=== PATIENT | male | born 1980 | race Caucasian/White ===

== ENCOUNTER → 2019-09-24 11:54 | Outpatient (BNVA) | payer SELFPAY | PROVIDERS: Referring Provider Family Medicine; Visit Provider Specialist | DX: G40.909 Epilepsy, unspecified, not intractable, without status epilepticus (principal); F17.210 Nicotine dependence, cigarettes, uncomplicated | CPT/HCPCS: 36415; 80156; 99204 ==

== ENCOUNTER → 2019-10-22 07:34 | Outpatient (BNVA) | payer SELFPAY | PROVIDERS: PCP Specialist; Visit Provider Specialist | DX: G40.309 Generalized idiopathic epilepsy and epileptic syndromes, not intractable, without status epilepticus (principal) | CPT/HCPCS: 95816 ==

== ENCOUNTER → 2022-08-06 10:22 | Outpatient (BNVA) | payer BC, SELFPAY | PROVIDERS: PCP Family Medicine; Visit Provider Emergency Medicine | DX: M79.601 Pain in right arm (principal); S59.911A Unspecified injury of right forearm, initial encounter; X58.XXXA Exposure to other specified factors, initial encounter | CPT/HCPCS: 73060; 73090 ==

== ENCOUNTER → 2022-10-19 12:06 | Outpatient (BNVA) | payer BC, SELFPAY | PROVIDERS: PCP Family Medicine; Visit Provider Psychiatry & Neurology Neurology | DX: F33.0 Major depressive disorder, recurrent, mild (principal) | CPT/HCPCS: 80061; 83036 ==

== ENCOUNTER → 2023-05-16 13:12 | Outpatient (BNVA) | payer BC, SELFPAY ==
[2022-12-19 07:08] VITALS: BP 117/76; BMI 28.2
== END ==
PROVIDERS: PCP Family Medicine; Visit Provider Emergency Medicine
DX: K92.1 Melena (principal); Z12.9 Encounter for screening for malignant neoplasm, site unspecified; Z80.0 Family history of malignant neoplasm of digestive organs
CPT/HCPCS: 82378; 85014; 85018; 86301; G0103

== ENCOUNTER → 2023-07-06 10:59 | Outpatient (BNVA) | payer BC, SELFPAY ==
[2022-12-19 07:08] VITALS: BP 117/76; BMI 28.2
== END ==
PROVIDERS: PCP Family Medicine; Visit Provider Family Medicine
DX: K21.9 Gastro-esophageal reflux disease without esophagitis (principal); L21.9 Seborrheic dermatitis, unspecified; G40.309 Generalized idiopathic epilepsy and epileptic syndromes, not intractable, without status epilepticus; G43.909 Migraine, unspecified, not intractable, without status migrainosus; Z51.81 Encounter for therapeutic drug level monitoring; Z13.1 Encounter for screening for diabetes mellitus; Z13.220 Encounter for screening for lipoid disorders; Z13.6 Encounter for screening for cardiovascular disorders; Z79.899 Other long term (current) drug therapy
CPT/HCPCS: 80053; 80061; 85025

== ENCOUNTER 2023-07-26 07:49 | Day surgery (SDC) | payer OTHER, BC, MEDICAID, SELFPAY ==
[2022-12-19 07:08] VITALS: BP 117/76; BMI 28.2
[2023-07-26 07:59] VITALS: BP 112/74; PULSE 73; RESP 18; TEMP 36.1; O2SAT 99
[2023-07-26] MEDS: sodium chloride 0.9% 1,000 ML 30 ML IV (08:07)
--- NOTE | 2023-07-26 08:22 | PM.HP ---
Providers/Chief Complaint Primary Care Provider: Lainey Gonzalez MD Chief Complaint: K21.9, K92.2, Z80.0 History of Present Illness Javi Bassett is a 43 year old male Review of Systems General: Reports: 10 or more systems reviewed and unremarkable except in HPI and below Medications/Allergies Home Medications Medication Instructions Recorded Confirmed Last Taken Type mupirocin 2 % topical ointment 1 applic topical BID W57.XXXA #15 01/09/23 07/24/23 07/25/23 Rx grams ibuprofen 600 mg tablet 600 mg PO Q8H PRN pain #60 tabs 02/07/23 07/24/23 07/25/23 Rx citalopram 40 mg tablet (Celexa) 40 mg PO DAILY 30 days #30 tabs 05/17/23 07/24/23 07/25/23 Rx carbamazepine 200 mg tablet 200 mg PO BID 30 days #45 tabs 06/06/23 07/24/23 07/25/23 Rx (Tegretol) aripiprazole 5 mg tablet (Abilify) 5 mg PO DAILY 06/28/23 07/24/23 07/25/23 History ketoconazole 2 % shampoo 1 applic topical .weekly #120 mL 07/06/23 07/24/23 07/25/23 Rx pantoprazole 40 mg tablet,delayed 40 mg PO BID 90 days #180 tabs 07/06/23 07/24/23 07/25/23 Rx release (Protonix) zonisamide 100 mg capsule 250 mg (2.5 x 100 mg) PO DAILY 90 07/25/23 07/26/23 07/25/23 Rx days #225 caps Allergies Allergy/AdvReac Type Severity Reaction Status Date / Time amoxicillin Allergy ALGY-Difficulty Verified 07/26/23 07:57 Breathing Penicillins Allergy swelling Verified 07/26/23 07:57 chantix AdvReac Severe ADR-Agitate Uncoded 06/28/23 09:09 d PFSH Acute PFSH: Medical History Family history of colorectal cancer Cancer screening Psychiatric care Migraine Surgical History History of knee surgery left knee Family History Sister Melanoma Other CAD (coronary artery disease) Cancer Hypertension Stroke Denies family history of Diabetes Social History Smoking and tobacco/nicotine status: current every day tobacco/nicotine user cigarettes Packs smoked per day: 0.5 Quit status (tobacco/nicotine): has tried quititng Number of times tried to quit tobacco: 4 Second hand smoke exposure: No Alcohol intake: former (Only drank once and that was on his birthday. ) Former alcohol use details: on his birthday Substance/Drug Use: never Adopted: No Caregiver/support person: No Lives independently: Yes Household members: spouse and children Housing: House Marital status: Marital status details: March of 2022, been together 4 years Number of children: 0 Number of grandchildren: 0 Highest education level completed: 11th Grade service: No Current occupational status: other Details: working on disability Pets and animals: Yes Pets & animals: cat(s), dog(s) and farm animals Farm Animals: pigs Pets & animal details: [place] pig, chickens Leisure activites: other Leisure activities details: woodworking Sexually active: Yes () Do you think of yourself as: Straight/Heterosexual Current gender identity: Male Isabell/Gnosticist: None Special isabell needs: No Agree to transfusion: Yes Vitals/I&O/Wt Last Vital Signs Temp 97.0 F L 07/26/23 07:59 Pulse 73 07/26/23 07:59 Resp 18 07/26/23 07:59 BP 112/74 07/26/23 07:59 Pulse Ox 99 07/26/23 07:59 O2 Del Method Room Air 07/26/23 07:59 Weight last 48 hrs Weight 170 lb A&P Assessment and plan (1) Family history of colorectal cancer: (2) GERD (gastroesophageal reflux disease): Qualifiers: Esophagitis presence: without esophagitis Qualified Code(s): K21.9 - Gastro-esophageal reflux disease without esophagitis (3) GI bleed: Attestations Medical Necessity Statement*: Home Coding Level of Care Code Acute Code for Chg Fwd Diagnoses Family history of colorectal cancer Z80.0 Gastroesophageal reflux disease without esophagitis K21.9 Esophagitis presence: without esophagitis GI bleed K92.2
--- NOTE | 2023-07-26 08:23 | P.ANESASSM_ITS ---
Pre-Anesthetic Assessment Height/Weight: Height 1.78 m Weight 77.111 kg Temp Pulse Resp BP Pulse Ox O2 Del Method 97.0 F L 73 18 112/74 99 Room Air 07/26/23 07:59 07/26/23 07:59 07/26/23 07:59 07/26/23 07:59 07/26/23 07:59 07/26/23 07:59 Preop Diagnosis: Gerd Operation Date: 07/26/23 08:45 Proposed Procedures p EGD(Not Applicable) - Rolando Lewis DO s Colonoscopy(Not Applicable) - Rolando Lewis DO Familial anesthetic complications: None Was Beta Melissa taken within 24 hours: N/A Was Clonidine taken within 24 hours: N/A Last intake: Intake Last Liquid Date 07/25/23 Last Liquid Time 20:00 Last Solid Date 07/24/23 Last Solid Time 18:00 Social Tobacco and No alcohol 1 pack(s) per day 30 pack years Exam alert, oriented x 3 and clear to auscultation bilaterally Airway Mallampati: Class II Dentition: false History/ROS No significant history except as noted Pulmonary Shortness of Breath CV/HEM None reported one kidney has decreased function Hepatic None reported GI Gastroesophageal Reflux Disease Metabolic None reported Musc/skel None reported Neuropsych Seizure (epilepsy; last seizure over 1 year ago) Anesthetic Plan ASA status: 3 Anesthesia: Anesthesia Evaluation and MAC Risk of > 500 ml blood loss (7ml/kg in children): No Medications/Allergies Home Medications Medication Instructions Recorded Confirmed Last Taken Type mupirocin 2 % topical ointment 1 applic topical BID W57.XXXA #15 01/09/23 07/24/23 07/25/23 Rx grams ibuprofen 600 mg tablet 600 mg PO Q8H PRN pain #60 tabs 02/07/23 07/24/23 07/25/23 Rx citalopram 40 mg tablet (Celexa) 40 mg PO DAILY 30 days #30 tabs 05/17/23 07/24/23 07/25/23 Rx carbamazepine 200 mg tablet 200 mg PO BID 30 days #45 tabs 06/06/23 07/24/23 07/25/23 Rx (Tegretol) aripiprazole 5 mg tablet (Abilify) 5 mg PO DAILY 06/28/23 07/24/23 07/25/23 History ketoconazole 2 % shampoo 1 applic topical .weekly #120 mL 07/06/23 07/24/23 07/25/23 Rx pantoprazole 40 mg tablet,delayed 40 mg PO BID 90 days #180 tabs 07/06/23 07/24/23 07/25/23 Rx release (Protonix) zonisamide 100 mg capsule 250 mg (2.5 x 100 mg) PO DAILY 90 07/25/23 07/26/23 07/25/23 Rx days #225 caps Allergies Allergy/AdvReac Type Severity Reaction Status Date / Time amoxicillin Allergy ALGY-Difficulty Verified 07/26/23 07:57 Breathing Penicillins Allergy swelling Verified 07/26/23 07:57 chantix AdvReac Severe ADR-Agitate Uncoded 06/28/23 09:09 d Current Medications Generic Name Dose Route Start Last Admin Trade Name Freq PRN Reason Stop Dose Admin Sodium Chloride 1,000 mls @ 30 mls/hr 07/26/23 08:00 07/26/23 08:07 Sodium Chloride 0.9% IV 07/27/23 07:59 30 mls/hr .Q24H MATILDA Administration PFSH Anesthesia Medical History Family history of colorectal cancer Cancer screening Psychiatric care Migraine Surgical History History of knee surgery left knee Family History Sister Melanoma Other CAD (coronary artery disease) Cancer Hypertension Stroke Denies family history of Diabetes Social History Smoking and tobacco/nicotine status: current every day tobacco/nicotine user cigarettes Packs smoked per day: 0.5 Quit status (tobacco/nicotine): has tried quititng Number of times tried to quit tobacco: 4 Second hand smoke exposure: No Alcohol intake: former (Only drank once and that was on his birthday. ) Former alcohol use details: on his birth Substance/Drug Use: never Adopted: No Caregiver/support person: No Lives independently: Yes Household members: spouse and children Housing: House Marital status: Marital status details: March of 2022, been together 4 years Number of children: 0 Number of grandchildren: 0 Highest education level completed: 11th Grade service: No Current occupational status: other Details: working on disability Pets and animals: Yes Pets & animals: cat(s), dog(s) and farm animals Farm Animals: pigs Pets & animal details: [place] pig, chickens Leisure activites: other Leisure activities details: woodworking Sexually active: Yes () Do you think of yourself as: Straight/Heterosexual Current gender identity: Male Isabell/Zoroastrian: None Special isabell needs: No Agree to transfusion: Yes Data Anesthesia Cardiac Studies: No Data to Display
[2023-07-26 09:14] VITALS: BP 100/68; PULSE 64; RESP 16; TEMP 36.1; O2SAT 97
[2023-07-26 09:19] VITALS: BP 94/66; PULSE 76; RESP 16; O2SAT 99
[2023-07-26 09:29] VITALS: BP 115/72; PULSE 69; RESP 18; O2SAT 98
--- NOTE | 2023-07-26 09:50 | ANE.PACU2 ---
Inpatient post-anesthesia follow up: Airway intact: Yes Vital signs: Temperature 97.0 F Pulse Rate 69 Respiratory Rate 18 Blood Pressure 115/72 Pulse Oximetry 98 Oxygen Delivery Me thod Room Air Oxygen Flow Rate Fraction of Inspir ed Oxygen Hydration adequate: Yes Nausea and vomiting: No Pain level: 1 Mental status: Baseline
== END 2023-07-26 09:50 | disposition home or self-care (01) ==
PROVIDERS: PCP Family Medicine; Visit Provider Surgery
PROC: 0DJ08ZZ Inspection of Upper Intestinal Tract, Via Natural or Artificial Opening Endoscopic (ICD-10-PCS; CPT 43235; principal; 2023-07-26 08:45)
PROC: 0DJD8ZZ Inspection of Lower Intestinal Tract, Via Natural or Artificial Opening Endoscopic (ICD-10-PCS; CPT 45378; 2023-07-26 08:45)
DX: K92.2 Gastrointestinal hemorrhage, unspecified (principal); K21.9 Gastro-esophageal reflux disease without esophagitis; Z80.0 Family history of malignant neoplasm of digestive organs; F17.210 Nicotine dependence, cigarettes, uncomplicated; K64.8 Other hemorrhoids
CPT/HCPCS: 43239; 45378; 88305; 88342; J2250; J2704; J7030

== ENCOUNTER 2023-12-15 18:52 | Emergency (ER) | payer BC, MEDICAID, SELFPAY ==
[2022-12-19 07:08] VITALS: BP 117/76; BMI 28.2
[2023-12-15 18:54] VITALS: BP 123/77; PULSE 91; RESP 20; TEMP 37.1; O2SAT 98; BMI 25.1
--- NOTE | 2023-12-15 19:19 | CTR_ITS ---
PROCEDURE INFORMATION: Exam: CT Head Without Contrast Exam date and time: 12/15/2023 7:40 PM Age: 43 years old Clinical indication: Condition or disease; Convulsions or seizures; Patient HX: Patient reports having a seizure while being outisde all day. History of epileptic seizure disorder. TECHNIQUE: Imaging protocol: Computed tomography of the head without contrast. Radiation optimization: All CT scans at this facility use at least one of these dose optimization techniques: automated exposure control; mA and/or kV adjustment per patient size (includes targeted exams where dose is matched to clinical indication); or iterative reconstruction. COMPARISON: No relevant prior studies available. RADIATION DOSE METRICS: Total DLP (mGy-cm): 1004.19 FINDINGS: Brain: Borderline low positioning of the cerebellar tonsils below the foramen magnum . No intracranial hemorrhage or extra-axial fluid collection. No focal cerebral parenchymal abnormality, mass effect or midline shift. Cerebral ventricles: No ventriculomegaly. Paranasal sinuses: Visualized sinuses are unremarkable. No fluid levels. Mastoid air cells: Visualized mastoid air cells are well aerated. Bones: Unremarkable. No acute fracture. Soft tissues: Unremarkable. CT/CT head wo con* [id number] IMPRESSION: 1. No acute intracranial or calvarial abnormality on CT. Further evaluation with MR as clinically warranted. 2. Borderline low positioning of the cerebellar tonsils without overt Chiari malformation.
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
[2023-12-15 19:36] LABS: Add Urine Microscopic? NO; Charge for UA Resulting for Rev
--- NOTE | 2023-12-15 19:39 | PC.NURSE ---
seizure pads on bed
[2023-12-15] MEDS: sodium chloride 0.9% 1,000 ML 999 ML IV (19:41)
[2023-12-15 19:49] LABS: Bilirubin Urine Neg (Negative); Blood Urine Neg (Negative); Glucose Urine UA Norm (Normal); Ketones Urine Negative (Negative); Leukocyte Esterase Urine Negative (Negative); Nitrate Urine Negative (Negative); Protein Urine Neg (Negative); Specific Gravity, Urine 1.015 (1.005-1.030); Urine Appearance Clear (CLEAR); Urine Color Yellow (Yellow); Urobilinogen Urine Norm (Negative); pH Urine 6 (5-7)
[2023-12-15 19:52] LABS: Basophils # 0.1 10^3/uL (0.0-0.1); Basophils % 0.9 %; Eosinophils # 0.2 10^3/uL (0.0-0.8); Eosinophils % 1.4 %; Hematocrit 40.6 % (37-53); Lymphocytes % 17.1 %; Mean Corpuscular HGB Conc 33.3 g/dL (30-55); Mean Corpuscular Hemoglobin 30.8 pg (27-33); Mean Corpuscular Volume 92.5 fl (82-101); Mean Platelet Volume 9.3 fL (7.4-10.4); Monocytes % 8.3 %; Neutrophils # 8.35 10^3/uL (1.8-7.7); Neutrophils % 71.9 %; Nucleated Red Blood Cells % 0 %; Platelet Count 267 10^3/cmm (157-399); Red Blood Count 4.39 10^6/uL (3.85-5.65); Red Cell Distribution Width 12.8 % (12.1-15.1); White Blood Count 11.62 10^3/uL (3.29-11.43)
[2023-12-15 19:58] LABS: Amphetamines Screen Urine Negative (Negative); Barbiturates Screen Urine Negative (Negative); Benzodiazepines Screen Urine Negative (Negative); Cocaine Screen Urine Negative (Negative); Opiate Screen Urine Negative (Negative); PCP Screen Urine Negative (Negative); THC Screen Urine Negative (Negative)
[2023-12-15 20:00] VITALS: BP 109/69; PULSE 74; RESP 15; O2SAT 100
[2023-12-15 20:06] LABS: Alanine Aminotransferase 29 U/L (0-41); Albumin Level 3.8 g/dL (3.5-5.2); Alkaline Phosphatase 107 U/L (40-130); Anion Gap 13.6 (5-19); Aspartate Amino Transferase 22 U/L (0-40); Blood Urea Nitrogen 7 mg/dL (6-20); Calcium 8.8 mg/dL (8.5-10.5); Carbon Dioxide 23 mmol/L (22-29); Chloride 104 mmol/L (98-107); Creatinine Clr Calc Pharmacy 83.9462; Globulin 2.8 g/dL (1.3-4.6); Glomerular Filtration Rate 65.8 mL/min (90-130); Glucose 86 mg/dL (65-115); Osmolality Calculated 281 mOsm/kg (285-295); Potassium 3.6 mmol/L (3.5-5.1); Sodium 137 mmol/L (136-145); Total Bilirubin 0.3 mg/dL (0.15-1.2); Total Protein 6.6 g/dL (6.6-8.7)
[2023-12-15 20:30] VITALS: BP 125/73; RESP 14; O2SAT 98
--- NOTE | 2023-12-15 20:53 | PC.NURSE ---
Report to DALE Keller
[2023-12-15 21:00] VITALS: BP 116/68; PULSE 91; RESP 16; O2SAT 98
[2023-12-15 21:30] VITALS: BP 108/59; PULSE 87; RESP 15; O2SAT 100
[2023-12-15 22:00] VITALS: BP 109/58; PULSE 90; RESP 16; O2SAT 97
== END 2023-12-15 21:45 | disposition home or self-care (01) ==
PROVIDERS: Emergency Provider Emergency Medicine; PCP Family Medicine
DX: G40.89 Other seizures (principal); F17.210 Nicotine dependence, cigarettes, uncomplicated
CPT/HCPCS: 36415; 70450; 80053; 80306; 81003; 85025; 86140; 96360; 99285; J7030

== ENCOUNTER 2023-12-15 23:27 | Emergency (ER) | payer BC, MEDICAID, SELFPAY ==
[2022-12-19 07:08] VITALS: BP 117/76; BMI 28.2
[2023-12-15 23:36] VITALS: BP 124/67; PULSE 96; RESP 18; O2SAT 98
[2023-12-16] VITALS: BP 123/68; PULSE 93; O2SAT 95
--- NOTE | 2023-12-16 00:06 | ED_ITS ---
HPI - Seizure General: Chief Complaint: Seizure Stated Complaint: seizure Time Seen by Provider: 12/15/23 23:40 History of Present Illness: HPI Narrative: The patient presents to the ER with a history of seizures and reports waking up in the ER waiting room. The patient states they were outside making phone calls and came in due to feeling too hot. The patient has a known seizure history and is currently on Tegretol and another medication starting with Z for seizure management. The patient confirms taking their medications today, with 100 mg of Tegretol in the morning and 50 mg at night. However, the patient admits to taking the evening dose of Tegretol late, around 9 or 10 pm, which may have contributed to the current situation. Per nursing report the patient's seizure-like activity in the lobby did not appear to be consistent with a tonic-clonic seizure. Additionally, the patient did not experience a postictal state. Review of Systems General: Reports: 10 or more systems reviewed and unremarkable except in HPI and below PFSH ED PFSH: Medical History Family history of colorectal cancer Cancer screening Psychiatric care Migraine Surgical History History of knee surgery left knee Family History Sister Melanoma Other CAD (coronary artery disease) Cancer Hypertension Stroke Denies family history of Diabetes Social History Smoking and tobacco/nicotine status: current every day tobacco/nicotine user cigarettes Packs smoked per day: 0.5 Quit status (tobacco/nicotine): has tried quititng Number of times tried to quit tobacco: 4 Second hand smoke exposure: No Alcohol intake: former (Only drank once and that was on his 20st birthday. ) Former alcohol use details: on his birthday Substance/Drug Use: never Adopted: No Caregiver/support person: No Lives independently: Yes Household members: spouse and children Housing: House Marital status: Marital status details: March of 2022, been together 4 years Number of children: 0 Number of grandchildren: 0 Highest education level completed: 11th Grade service: No Current occupational status: other Details: working on disability Pets and animals: Yes Pets & animals: cat(s), dog(s) and farm animals Farm Animals: pigs Pets & animal details: [place] pig, chickens Leisure activites: other Leisure activities details: woodworking Sexually active: Yes () Do you think of yourself as: Straight/Heterosexual Current gender identity: Male Isabell/Mormonism: None Special isabell needs: No Agree to transfusion: Yes Physical Exam Const: COMMON NORMALS: no acute distress, patient oriented x3, healthy appearing, alert and well nourished HENMT: COMMON NORMALS: normocephalic HEAD & SCALP: normocephalic Eye: COMMON NORMALS: EOMs intact bilaterally Neck/C-Spine: COMMON NORMALS: full ROM and supple Resp: COMMON NORMALS: normal respiratory effort, No retractions and clear to auscultation bilaterally AUSCULTATION: clear to auscultation bilaterally Cardio: COMMON NORMALS: regular rate, regular rhythm, No gallops present (Cardio) and No murmurs present (Cardio) RATE: regular rate RHYTHM: regular rhythm GI: COMMON NORMALS: Soft to palpation and non-tender PALPATION: Yes Soft to palpation Extremity: GENERAL: Yes normal exam except as noted Neuro: COMMON NORMALS: patient oriented x3 SENSORIUM/ORIENTATION: Yes alert Skin: COMMON NORMALS: no rashes or lesions noted GENERAL SKIN EXAM: no rashes or lesions noted Course Vital Signs: Vital signs: Vital Signs Pulse Rate 96 12/15/23 23:36 Respiratory Rate 18 12/15/23 23:36 Blood Pressure 124/67 12/15/23 23:36 Pulse Oximetry 98 12/15/23 23:36 Oxygen Delivery Me thod Room Air 12/15/23 23:36 MDM - Seizure No radiology studies performed this visit ED provider radiology interpretation(s): 43-year-old male presented to the emergency department for reevaluation of seizure. Patient was seen just a few hours prior in this emergency department for breakthrough seizure. As patient did not demonstrate a prolonged seizure, and potentially not true seizure activity patient was prepared for discharge. The patient's Tegretol dose was relatively low and he was given an additional dose in the ER to help prevent any future breakthrough seizures. Patient was encouraged to follow-up with his neurologist for dose adjustment for his medications. There was some concern for malingering as the patient's signs and symptoms are not consistent with seizure. Patient was discharged home in stable condition. Discharge Plan Discharge Patient Disposition: Home Clinical Impression: Generalized epilepsy, Breakthrough seizure Condition: Stable Prescriptions: No Action ibuprofen 600 mg tablet 600 mg PO Q8H PRN (Reason: pain) Qty: 60 0RF Hold Instructions: Resume on 07/28/23. pantoprazole [Protonix] 40 mg tablet,delayed release (DR/EC) 40 mg PO BID 90 Days Qty: 180 3RF ketoconazole 2 % shampoo 1 applic topical .weekly Qty: 120 5RF aripiprazole [Abilify] 5 mg tablet 5 mg PO DAILY Qty: 30 4RF citalopram [Celexa] 40 mg tablet 40 mg PO DAILY 30 Days Qty: 30 4RF omeprazole 40 mg capsule,delayed release(DR/EC) 40 mg PO DAILY 30 Days Qty: 30 12RF zonisamide 50 mg capsule 50 mg PO .at bedtime 90 Days Qty: 90 1RF Rx Instructions: pt also takes 200mg BID mupirocin 2 % ointment 1 applic topical BID Qty: 15 1RF Rx Instructions: Apply to affected area twice a day, as needed carbamazepine [Tegretol] 200 mg tablet 200 mg PO BID 30 Days Qty: 45 5RF Rx Instructions: Take half tablet in the morning and one full tablet in the evening. zonisamide 100 mg capsule See Rx Instructions .ROUTE .COMPLEX Qty: 225 0RF Dose Instruction: TAKE TWO CAPSULES BY MOUTH IN THE MORNING AND 50 MG IN THE EVENING Rx Instructions: TAKE TWO CAPSULES BY MOUTH IN THE MORNING AND 50 MG IN THE EVENING Discharge Orders: Discharge ED (Routine); Ordered 12/16/23 Ordered By: Darryl Neal Referrals: Lainey Gonzalez MD [Primary Care Provider] - Discharge Diet: Usual diet Discharge Activity: Resume usual activity Patient Instructions: Epilepsy (ED), Opioid Safety, Pain Management, Seizures Activity Restrictions/Additional Instructions: Please return to the emergency department with any new or worsening symptoms. You need to follow-up with your neurologist as your Tegretol dose may need to be adjusted with a few breakthrough seizures. Coding Level of Care Code ED Support Merchandiser for Tari Dai
[2023-12-16 00:30] VITALS: BP 129/70; PULSE 99; O2SAT 95
[2023-12-16] MEDS: carBAMazepine 200 mg Tablet 100 MG PO (00:39)
[2023-12-16 00:58] VITALS: BP 104/59; PULSE 105; O2SAT 97
== END 2023-12-16 00:58 | disposition home or self-care (01) ==
PROVIDERS: Emergency Provider General Practice; PCP Family Medicine
DX: G40.409 Other generalized epilepsy and epileptic syndromes, not intractable, without status epilepticus (principal); F17.210 Nicotine dependence, cigarettes, uncomplicated
CPT/HCPCS: 99283

== ENCOUNTER 2023-12-20 14:41 | Emergency (ER) | payer BC, MEDICAID, SELFPAY ==
[2022-12-19 07:08] VITALS: BP 117/76; BMI 28.2
[2023-12-20 14:45] VITALS: BP 110/72; PULSE 90; RESP 16; TEMP 36.7; O2SAT 98; BMI 28.1
--- NOTE | 2023-12-20 14:53 | W.ED.SEIZURE ---
HPI - Seizure General: Chief Complaint: Seizure Stated Complaint: Poss. Seizure Time Seen by Provider: 12/20/23 14:43 Source: patient Mode of arrival: EMS Limitations: no limitations History of Present Illness: HPI Narrative: This patient was transported by EMS because the patient felt like he may be having a prodrome to his seizure. He has a history of seizure disorder since he was a young adult. He takes Tegretol as well as is on some mild for control of his seizures. He states he has been seizure-free for approximately 18 months up until about 10 to 14 days ago when he had a couple of episodes of what he calls seizures. He was seen in the emergency department here on 622 twice for his symptoms. He states he has been under a lot of stress over the past couple of weeks and he thinks that may have been contributing to how he has been feeling. He states he has been taking his medications faithfully. He has been sleeping well. He does not use street drugs or alcohol. He denies any recent illness other than his been congested lately. MD complaint: feels seizure coming on Seizure History: Yes Possible Precipitating Event: stress Associated symptoms: Deny chest pain, chills, fever(s) or syncope Review of Systems Const: Denies: fever(s) or chills Eyes: Denies: change in vision ENMT: Denies: throat pain, odynophagia, nasal discharge or nasal congestion Card: Denies: chest pain, palpitations, syncope or pre-syncope Resp: Reports: non-productive cough; Denies: dyspnea, productive cough or wheezing GI: Denies: abdominal pain, nausea or vomiting : Denies: flank pain, difficulty urinating, dysuria or urinary frequency Musc: Denies: neck pain, back pain, extremity pain or extremity swelling Skin/Breast: Denies: rash Neuro: Denies: headache(s), numbness in extremities or weakness in extremities Psych: Reports: anxiety; Denies: sleeping less, sleeping more, suicidal ideation or homicidal ideation [facility] ED PFSH: Medical History Family history of colorectal cancer Cancer screening Psychiatric care Migraine Surgical History History of knee surgery left knee Family History Sister Melanoma Other CAD (coronary artery disease) Cancer Hypertension Stroke Denies family history of Diabetes Social History Smoking and tobacco/nicotine status: current every day tobacco/nicotine user cigarettes Packs smoked per day: 0.5 Quit status (tobacco/nicotine): has tried quititng Number of times tried to quit tobacco: 4 Second hand smoke exposure: No Alcohol intake: former (Only drank once and that was on his 20st birthday. ) Former alcohol use details: on his 20st birthday Substance/Drug Use: never Adopted: No Caregiver/support person: No Lives independently: Yes Household members: spouse and children Housing: House Marital status: Marital status details: March of 2022, been together 4 years Number of children: 0 Number of grandchildren: 0 Highest education level completed: 11th Grade service: No Current occupational status: other Details: working on disability Pets and animals: Yes Pets & animals: cat(s), dog(s) and farm animals Farm Animals: pigs Pets & animal details: [place] pig, chickens Leisure activites: other Leisure activities details: woodworking Sexually active: Yes () Do you think of yourself as: Straight/Heterosexual Current gender identity: Male Isabell/Amish: None Special isabell needs: No Agree to transfusion: Yes Physical Exam Narrative: EXAM NARRATIVE: He makes good eye contact. Speech is goal-directed. Appears to be comfortable and cooperative. Affect is normal. Const: COMMON NORMALS: no acute distress, average body habitus and patient oriented x3 GENERAL APPEARANCE: cooperative and comfortable HENMT: COMMON NORMALS: normocephalic, atraumatic, Normal nasal mucous membranes and turbinates present and moist oral mucous membranes HEAD & SCALP: normocephalic and atraumatic FACE & SINUS: normal facial exam NOSE: Normal nasal mucous membranes and turbinates present Eye: COMMON NORMALS: Equal, round and reactive pupils present, EOMs intact bilaterally and conjunctivae normal CONJUNCTIVA: Yes conjunctivae normal PUPIL: Yes Equal, round and reactive pupils present Neck/C-Spine: COMMON NORMALS: full ROM and Thyroid normal THYROID: Thyroid normal Chest: COMMONS NORMALS: normal inspection of the chest Resp: COMMON NORMALS: normal respiratory effort, No use of accessory muscles and clear to auscultation bilaterally AUSCULTATION: clear to auscultation bilaterally Cardio: COMMON NORMALS: regular rate, regular rhythm, No murmurs present (Cardio) and Peripheral pulses 2+ throughout RATE: regular rate RHYTHM: regular rhythm PERIPHERAL PULSES: Peripheral pulses 2+ throughout GI: COMMON NORMALS: Normal to inspection, nondistended, normoactive bowel sounds present : COMMON NORMALS: Yes no CVA tenderness BLADDER/KIDNEY EXAM: Yes no CVA tenderness Back/Pelvis: COMMON NORMALS: no CVA tenderness and thoraco-lumbar ROM normal Extremity: COMMON NORMALS: normal to inspection, full ROM and capillary refill normal Neuro: COMMON NORMALS: patient oriented x3, moves all extremities, no focal motor deficits and no sensory deficits noted CRANIAL NERVES: Yes CN normal except as noted GAIT: Yes Normal gait present Psych: COMMON NORMALS: mental status grossly normal, Normal thought process present, cooperative, normal affect, speech normal, activity/motor behavior normal, denies hallucinations, denies homicidal ideation and denies suicidal ideation SPEECH: Yes normal speech THOUGHT PROCESS: Normal thought process present Skin: COMMON NORMALS: no rashes or lesions noted and no wounds GENERAL SKIN EXAM: no rashes or lesions noted Course Reevaluation(s): Reevaluation #1: Patient remained stable and unchanged during his emergency department stay and reevaluation at this time. Time: 15:47 Vital Signs: Vital signs: Vital Signs Temperature 98.1 F 12/20/23 14:45 Pulse Rate 90 12/20/23 14:45 Respiratory Rate 16 12/20/23 14:45 Blood Pressure 110/72 12/20/23 14:45 Pulse Oximetry 98 12/20/23 14:45 Oxygen Delivery Me thod Room Air 12/20/23 14:45 MDM - Seizure MDM Narrative Medical decision making narrative: This patient transported the emergency department because he was concerned about a possible seizure. She has a longstanding history of seizure disorder this been well-controlled up until approximately 2 weeks ago when he attributes to episodes of the symptoms of suggestive of psychogenic nonepileptic seizures and then the sensation of possible seizure today. Clinical examination is reassuring. His exam did not reveal any focal findings or concerns that suggested ongoing emergency medical condition. A chest x-ray and a basic chemistry was obtained which were reassuring. Currently clinically stable. Will go ahead and have him increase his Tegretol dosing to 300 mg twice daily and follow-up with neurology in the next 2 to 4 weeks. Will also provide him some Tessalon Perles for his cough which is likely bronchitis does not represent radiographic pneumonia or clinically a serious respiratory infection. Lab Data 12/20/23 14:50 Labs: Radiology Impressions Chest X-Ray 12/20/23 14:54 IMPRESSION: 1. No acute cardiopulmonary finding. Laboratory Results Sodium 137 mmol/L (136-145) 12/20/23 14:50 Potassium 4.1 mmol/L (3.5-5.1) 12/20/23 14:50 Chloride 102 mmol/L (98-107) 12/20/23 14:50 Carbon Dioxide 23 mmol/L (22-29) 12/20/23 14:50 Anion Gap 16.1 (5-19) 12/20/23 14:50 BUN 14 mg/dL (6-20) 12/20/23 14:50 Creatinine 1.1 mg/dL (0.7-1.2) 12/20/23 14:50 GFR Calculation 72.7 mL/min (90-130) L 12/20/23 14:50 Glucose 92 mg/dL (65-115) 12/20/23 14:50 Calculated Osmolality 284 mOsm/kg (285-295) L 12/20/23 14:50 Calcium 9.4 mg/dL (8.5-10.5) 12/20/23 14:50 All radiology interpretation(s) finalized by discharge Discharge Plan Discharge Patient Disposition: Home Clinical Impression: Seizure disorder Acute bronchitis Qualifiers: Bronchitis organism: unspecified organism Qualified Code(s): J20.9 - Acute bronchitis, unspecified Condition: Stable Prescriptions: New benzonatate 100 mg capsule 100 mg PO TID PRN (Reason: cough) Qty: 30 0RF carbamazepine 200 mg tablet extended release 12 hr 300 mg PO BID Qty: 90 3RF Discontinued carbamazepine [Tegretol] 200 mg tablet 200 mg PO BID 30 Days Qty: 45 5RF Rx Instructions: Take half tablet in the morning and one full tablet in the evening. No Action ibuprofen 600 mg tablet 600 mg PO Q8H PRN (Reason: pain) Qty: 60 0RF Hold Instructions: Resume on 07/28/23. pantoprazole [Protonix] 40 mg tablet,delayed release (DR/EC) 40 mg PO BID 90 Days Qty: 180 3RF ketoconazole 2 % shampoo 1 applic topical .weekly Qty: 120 5RF aripiprazole [Abilify] 5 mg tablet 5 mg PO DAILY Qty: 30 4RF citalopram [Celexa] 40 mg tablet 40 mg PO DAILY 30 Days Qty: 30 4RF omeprazole 40 mg capsule,delayed release(DR/EC) 40 mg PO DAILY 30 Days Qty: 30 12RF zonisamide 50 mg capsule 50 mg PO .at bedtime 90 Days Qty: 90 1RF Rx Instructions: pt also takes 200mg BID mupirocin 2 % ointment 1 applic topical BID Qty: 15 1RF Rx Instructions: Apply to affected area twice a day, as needed zonisamide 100 mg capsule See Rx Instructions .ROUTE .COMPLEX Qty: 225 0RF Dose Instruction: TAKE TWO CAPSULES BY MOUTH IN THE MORNING AND 50 MG IN THE EVENING Rx Instructions: TAKE TWO CAPSULES BY MOUTH IN THE MORNING AND 50 MG IN THE EVENING Discharge Orders: Discharge ED (Routine); Ordered 12/20/23 Ordered By: Yariel Hernández Referrals: Lainey Gonzalez MD [Primary Care Provider] - Sneha Ramos MD [Physician] - 3 weeks (seizure follow up) Discharge Diet: Usual diet Discharge Activity: Increase activity as tolerated Patient Instructions: Opioid Safety, Pain Management Activity Restrictions/Additional Instructions: As we discussed we have recommended increasing your Tegretol dose to 300 mg twice daily. Continue your other medications as prescribed. We have also prescribed something to help with your cough and congestion. If you have worsening or persistent symptoms you are welcome to return to the emergency department otherwise you should follow-up with Dr. Ramos and neurology in approximately 3 to 4 weeks. Coding Level of Care Code ED Former Hand for Tari Dai
--- NOTE | 2023-12-20 14:54 | XR_ITS ---
WS: [id number] Exam: XR chest 1V portable [id number] Date/Time of Exam: 12/20/2023 2:56 PM Reason For Exam: cough and congestion No priors. Lungs are clear and fully inflated. Normal cardiomediastinal silhouette. No pleural effusions. Mild d extroscoliosis of the T-spine. Remaining bony structures are unremarkable. XR/XR chest 1V portable [id number] IMPRESSION: 1. No acute cardiopulmonary finding.
[2023-12-20 15:19] LABS: Anion Gap 16.1 (5-19); Blood Urea Nitrogen 14 mg/dL (6-20); Calcium 9.4 mg/dL (8.5-10.5); Carbon Dioxide 23 mmol/L (22-29); Chloride 102 mmol/L (98-107); Creatinine Clr Calc Pharmacy 96.1959; Glomerular Filtration Rate 72.7 mL/min (90-130); Glucose 92 mg/dL (65-115); Osmolality Calculated 284 mOsm/kg (285-295); Potassium 4.1 mmol/L (3.5-5.1); Sodium 137 mmol/L (136-145)
== END 2023-12-20 16:17 | disposition home or self-care (01) ==
PROVIDERS: Emergency Provider Emergency Medicine; PCP Family Medicine
DX: G40.909 Epilepsy, unspecified, not intractable, without status epilepticus (principal); J20.9 Acute bronchitis, unspecified; F17.210 Nicotine dependence, cigarettes, uncomplicated
CPT/HCPCS: 71045; 80048; 99284

== ENCOUNTER 2023-12-20 18:46 | Inpatient (IN) | payer BC, MEDICAID, SELFPAY ==
[2022-12-19 07:08] VITALS: BP 117/76; BMI 28.2
[2023-12-20 18:51] VITALS: BP 119/72; PULSE 94; RESP 16; TEMP 36.8; O2SAT 95; BMI 28.4
--- NOTE | 2023-12-20 19:01 | PC.NURSE ---
All patient belongings have been removed from patient, placed in labeled bag and placed in designated drawers by ED psych rooms. Patient does have a medical alert bracelet that remains on at this time.
--- NOTE | 2023-12-20 19:31 | W.ED.PSYCHS ---
HPI - Psych General: Chief Complaint: Psychiatric Symptoms Stated Complaint: SI Time Seen by Provider: 12/20/23 18:52 Source: patient Mode of arrival: ambulatory Limitations: no limitations History of Present Illness: Patient returns to the emergency department with concerns about thoughts of harming himself. He states that his stressors have reached a new height since leaving the emergency department earlier today where he would came for concerned about possible onset of seizures. He states he now has thoughts of harming himself. He states he did not have a specific plan but he had similar thoughts approximately 2 months ago which she did not act upon. Patient has no prior history of mental health hospitalizations. States the primary precipitating factor or stressors with family which she does not want to elaborate at this time. MD complaint: suicidal ideation and feels depressed History of same: Yes Relieving factors: none Associated symptoms: Reports depression and suicidal ideation; Deny auditory hallucinations or homicidal ideation If self harm: admits thoughts of self harm Review of Systems Const: Denies: fever(s) or chills ENMT: Denies: throat pain or odynophagia Card: Denies: chest pain, palpitations, syncope or pre-syncope Resp: Denies: dyspnea, productive cough or non-productive cough GI: Denies: abdominal pain, nausea, vomiting, hematemesis, diarrhea or melena : Denies: difficulty urinating or dysuria Musc: Denies: neck pain, back pain, extremity pain or extremity swelling Skin/Breast: Denies: rash Neuro: Denies: headache(s), numbness in extremities or weakness in extremities Psych: Reports: depression, loss of interest and suicidal ideation; Denies: auditory hallucinations, tactile hallucinations or homicidal ideation [facility] ED PFSH: Medical History Family history of colorectal cancer Cancer screening Psychiatric care Migraine Surgical History History of knee surgery left knee Family History Sister Melanoma Other CAD (coronary artery disease) Cancer Hypertension Stroke Denies family history of Diabetes Social History Smoking and tobacco/nicotine status: current every day tobacco/nicotine user cigarettes Packs smoked per day: 0.5 Quit status (tobacco/nicotine): has tried quititng Number of times tried to quit tobacco: 4 Second hand smoke exposure: No Alcohol intake: former (Only drank once and that was on his birthday. ) Former alcohol use details: on his birthday Substance/Drug Use: never Adopted: No Caregiver/support person: No Lives independently: Yes Household members: spouse and children Housing: House Marital status: Marital status details: March of 2022, been together 4 years Number of children: 0 Number of grandchildren: 0 Highest education level completed: 11th Grade service: No Current occupational status: other Details: working on disability Pets and animals: Yes Pets & animals: cat(s), dog(s) and farm animals Farm Animals: pigs Pets & animal details: Potbelly pig, chickens Leisure activites: other Leisure activities details: woodworking Sexually active: Yes () Do you think of yourself as: Straight/Heterosexual Current gender identity: Male Isabell/Tenriism: None Special isabell needs: No Agree to transfusion: Yes Course Consultations: Consultation #1: Discussed with Dr. Gonzalez who agreed to admit patient. Time: 20:26 Vital Signs: Vital signs: Vital Signs Temperature 98.2 F 12/20/23 18:51 Pulse Rate 94 12/20/23 18:51 Respiratory Rate 16 12/20/23 18:51 Blood Pressure 119/72 12/20/23 18:51 Pulse Oximetry 95 12/20/23 18:51 Oxygen Delivery Me thod Room Air 12/20/23 18:51 MDM - Psych Medical Decision Making This patient with a history of the seizure disorder who has been seen in the emergency department for a couple of episodes and earlier today as well return to the emergency department because he endorsed feelings of feeling unsafe and harboring thoughts of self-harm without a specific plan. He states that the symptoms have progressed over the past 2 weeks related to some emotional upset and stressful interactions with family members. No evidence of drug or alcohol use and no evidence of prior hospitalizations for mental health issues. He states he has been faithful to his usual prescribed medications. Clinical exam reveals a somewhat depressed affect but he makes good eye contact and continues to endorse thoughts of self-harm. Decreased feelings of self-worth with depressed affect. Laboratories earlier today were unremarkable and drug and alcohol screens this evening are also reassuring. Patient's suicidality is indeterminate at this time and certainly with no prior history of mental health evaluations I think is reasonable that we put him in observation status for further mental health evaluation to determine if the patient is suffering from significant depression versus situational adjustment. Lab Data I reviewed the patient's lab results. Chemistry and other laboratories from earlier today are unremarkable. Laboratory Results Urine Opiates Screen Negative ng/mL (Negative) 12/20/23 Unknown Ur Barbiturates Screen Negative ng/mL (Negative) 12/20/23 Unknown Ur Phencyclidine Scrn Negative ng/mL (Negative) 12/20/23 Unknown Ur Amphetamines Screen Negative ng/mL (Negative) 12/20/23 Unknown U Benzodiazepines Scrn Negative ng/mL (Negative) 12/20/23 Unknown Urine Cocaine Screen Negative ng/mL (Negative) 12/20/23 Unknown U Marijuana (THC) Screen Negative ng/mL (Negative) 12/20/23 Unknown Ethyl Alcohol < 10 mg/dL (0-10) 12/20/23 19:40 No radiology studies performed this visit EKG Data EKG 1: I personally reviewed and interpreted this EKG as follows: Interpretation: Contemporaneous review of resting EKG reveals ventricular rate of 86 bpm. Normal NV interval, normal QRS duration, normal corrected QT interval. Normal axis. No acute ST-T wave changes noted. Discharge Plan Discharge Patient Disposition: Admitted As Inpatient Clinical Impression: Seizure disorder, Depression, Suicidal ideation Condition: Stable Prescriptions: No Action ibuprofen 600 mg tablet 600 mg PO Q8H PRN (Reason: pain) Qty: 60 0RF Hold Instructions: Resume on 07/28/23. pantoprazole [Protonix] 40 mg tablet,delayed release (DR/EC) 40 mg PO BID 90 Days Qty: 180 3RF ketoconazole 2 % shampoo 1 applic topical .weekly Qty: 120 5RF aripiprazole [Abilify] 5 mg tablet 5 mg PO DAILY Qty: 30 4RF citalopram [Celexa] 40 mg tablet 40 mg PO DAILY 30 Days Qty: 30 4RF omeprazole 40 mg capsule,delayed release(DR/EC) 40 mg PO DAILY 30 Days Qty: 30 12RF zonisamide 50 mg capsule 50 mg PO .at bedtime 90 Days Qty: 90 1RF Rx Instructions: pt also takes 200mg BID mupirocin 2 % ointment 1 applic topical BID Qty: 15 1RF Rx Instructions: Apply to affected area twice a day, as needed zonisamide 100 mg capsule See Rx Instructions .ROUTE .COMPLEX Qty: 225 0RF Dose Instruction: TAKE TWO CAPSULES BY MOUTH IN THE MORNING AND 50 MG IN THE EVENING Rx Instructions: TAKE TWO CAPSULES BY MOUTH IN THE MORNING AND 50 MG IN THE EVENING carbamazepine 200 mg tablet extended release 12 hr 300 mg PO BID Qty: 90 3RF benzonatate 100 mg capsule 100 mg PO TID PRN (Reason: cough) Qty: 30 0RF Referrals: Lainey Gonzalez MD [Primary Care Provider] - Coding Level of Care Code ED Registration Officer for [facility]
--- NOTE | 2023-12-20 19:58 | ECG_ITS ---
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 Measurements Intervals [place] Rate: 86 P: 50 NV: 122 QRS: 73 QRSD: 96 T: 62 QT: 335 QTc: 403 Interpretive Statements SINUS RHYTHM No previous ECG available for comparison Electronically Signed On 12-21-2023 0:19:41 CDT by Sayra Harrell M.D. [id number]
[2023-12-20 20:05] LABS: Alcohol Level < 10 mg/dL (0-10)
[2023-12-20 20:06] LABS: Amphetamines Screen Urine Negative (Negative); Barbiturates Screen Urine Negative (Negative); Benzodiazepines Screen Urine Negative (Negative); Cocaine Screen Urine Negative (Negative); Opiate Screen Urine Negative (Negative); PCP Screen Urine Negative (Negative); THC Screen Urine Negative (Negative)
[2023-12-20 20:29] VITALS: BP 101/63; PULSE 100; RESP 18; TEMP 36.8; O2SAT 96
[2023-12-20 22:00] VITALS: BP 101/63; PULSE 100; RESP 18; TEMP 36.8; O2SAT 96
[2023-12-20] MEDS: carBAMazepine XR (12 HR) 200 mg Tablet 300 MG PO (22:25)
[2023-12-20] MEDS: pantoprazole DR 40 mg Tablet PO (22:25)
[2023-12-20] MEDS: zonisamide 100 MG Capsule 200 MG PO (22:25)
[2023-12-21 06:00] VITALS: BP 124/76; PULSE 91; RESP 18; TEMP 36.9; O2SAT 95
[2023-12-21] MEDS: ARIPiprazole 10 mg Tablet 5 MG PO (08:56)
[2023-12-21] MEDS: citalopram 20 mg Tablet 40 MG PO (08:57)
[2023-12-21] MEDS: pantoprazole DR 40 mg Tablet PO (08:57)
[2023-12-21] MEDS: carBAMazepine XR (12 HR) 200 mg Tablet 300 MG PO ×2 (08:57→17:28)
[2023-12-21] MEDS: zonisamide 100 MG Capsule 200 MG PO ×2 (08:57→17:27)
[2023-12-21 14:00] VITALS: BP 112/73; PULSE 86; RESP 16; TEMP 36.4; O2SAT 98
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
[2023-12-21 22:00] VITALS: BP 100/65; PULSE 86; RESP 18; TEMP 36.8; O2SAT 95
[2023-12-22 06:00] VITALS: BP 113/77; PULSE 94; RESP 18; TEMP 36.8; O2SAT 96
--- NOTE | 2023-12-22 07:54 | W.PM.NPUDCS ---
Diagnoses at Discharge Discharge Diagnosis (1) Depression: Status: Acute Qualifiers: Major depression episode severity: unspecified Major depression recurrence: unspecified whether recurrent (2) Suicidal ideation: Status: Acute (3) GERD (gastroesophageal reflux disease): Status: Acute Qualifiers: Esophagitis presence: without esophagitis Qualified Code(s): K21.9 - Gastro-esophageal reflux disease without esophagitis (4) Migraine: Status: Acute Qualifiers: Migraine type: unspecified Status migrainosus presence: without status migrainosus Intractability: not intractable Qualified Code(s): G43.909 - Migraine, unspecified, not intractable, without status migrainosus (5) Generalized epilepsy: Status: Acute (6) Seizure disorder: Status: Acute Reason for Visit Reason for Visit: SI Involuntary Hold Information 96 Hour Hold: 96 Hour Involuntary Admission: No Mental Status Exam MSE Comments: This is an overweight versus obese white male in hospital scrubs with adequate grooming and eye contact.? No abnormal movements except for mild psychomotor retardation.?He was cooperative with exam in mild distress.? Speech was normal in rate and slightly decreased in volume.? Mood described as I feel better than last night especially with the plan. His affect was slightly subdued. Thought process was linear. Thought content: Patient endorsed fleeting suicidal thoughts when he was admitted but denies currently and denied homicidal ideation. There were no delusions reported or noted, he denied hallucinations or visual hallucinations. Attention and concentration were adequate and memory was mostly reliable but none were formally tested.? He is alert and oriented x 3.? Insight was poor and judgment is impaired and judgment are limited. Impulse control is limited, but improving. Discharge Data Studies Completed and Pending: Laboratory Results Urine Opiates Scre en Negative ng/mL (N egative) 12/20/23 Unknown Ur Barbiturates Sc reen Negative ng/mL (N egative) 12/20/23 Unknown Ur Phencyclidine S crn Negative ng/mL (N egative) 12/20/23 Unknown Ur Amphetamines Sc reen Negative ng/mL (N egative) 12/20/23 Unknown U Benzodiazepines Scrn Negative ng/mL (N egative) 12/20/23 Unknown Urine Cocaine Scre en Negative ng/mL (N egative) 12/20/23 Unknown U Marijuana (THC) Screen Negative ng/mL (N egative) 12/20/23 Unknown Ethyl Alcohol < 10 mg/dL (0-10) 12/20/23 19:40 Vitals: Last Vital Signs Temp 98.2 F 12/22/23 06:00 Pulse 94 12/22/23 06:00 Resp 18 12/22/23 06:00 BP 113/77 12/22/23 06:00 Pulse Ox 96 12/22/23 06:00 O2 Del Method Room Air 12/22/23 06:00 Discharge Plan Discharge Patient Disposition: Home Condition: Stable Prescriptions: Continued pantoprazole [Protonix] 40 mg tablet,delayed release (DR/EC) 40 mg PO BID 90 Days Qty: 180 3RF ketoconazole 2 % shampoo 1 applic topical .weekly Qty: 120 5RF aripiprazole [Abilify] 5 mg tablet 5 mg PO DAILY Qty: 30 4RF citalopram [Celexa] 40 mg tablet 40 mg PO DAILY 30 Days Qty: 30 4RF omeprazole 40 mg capsule,delayed release(DR/EC) 40 mg PO DAILY 30 Days Qty: 30 12RF zonisamide 50 mg capsule 50 mg PO .at bedtime 90 Days Qty: 90 1RF Rx Instructions: pt also takes 200mg BID mupirocin 2 % ointment 1 applic topical BID Qty: 15 1RF Rx Instructions: Apply to affected area twice a day, as needed zonisamide 100 mg capsule See Rx Instructions .ROUTE .COMPLEX Qty: 225 0RF Dose Instruction: TAKE TWO CAPSULES BY MOUTH IN THE MORNING AND 50 MG IN THE EVENING Rx Instructions: TAKE TWO CAPSULES BY MOUTH IN THE MORNING AND 50 MG IN THE EVENING carbamazepine 200 mg tablet extended release 12 hr 300 mg PO BID Qty: 90 3RF benzonatate 100 mg capsule 100 mg PO TID PRN (Reason: cough) Qty: 30 0RF Discharge Orders: Discharge Order (Routine); Ordered 12/22/23 Ordered By: Forrest Gonzalez Referrals: [facility] [Other] (Walk in times are M-F, 8am-5pm. Will need to go there to set up your initial visit. ) [facility] [Other] - 02/27/24 1:45 pm (Follow up) Lainey Gonzalez MD [Primary Care Provider] - Discharge Diet: Regular Discharge Activity: Resume usual activity Patient Instructions: Opioid Safety Discharge Attestations NPU Time Spent in Discharge Care*: less than 30 min Specific Discharge Activities: Specific discharge activities: educating patient, discussing with piano case and bench assembler/social workers/dc planners, documenting/other paperwork and evaluating patient/reviewing data Coding Level of Care Code Acute Code for Chg Fwd Diagnoses Depression F32.A Major depression episode severity: unspecified Major depression recurrence: unspecified whether recurrent Suicidal ideation R45.851 Gastroesophageal reflux disease without esophagitis K21.9 Esophagitis presence: without esophagitis Migraine without status migrainosus, not intractable, unspecified migraine type G43.909 Migraine type: unspecified Status migrainosus presence: without status migrainosus Intractability: not intractable Generalized epilepsy G40.309 Seizure disorder G40.909
[2023-12-22 07:56] VITALS: BP 113/77; PULSE 94; RESP 18; TEMP 36.8; O2SAT 96
[2023-12-22] MEDS: ARIPiprazole 10 mg Tablet 5 MG PO (08:04)
[2023-12-22] MEDS: zonisamide 100 MG Capsule 200 MG PO (08:04)
[2023-12-22] MEDS: carBAMazepine XR (12 HR) 200 mg Tablet 300 MG PO (08:04)
[2023-12-22] MEDS: pantoprazole DR 40 mg Tablet PO (08:04)
[2023-12-22] MEDS: citalopram 20 mg Tablet 40 MG PO (08:04)
== END 2023-12-22 08:18 | disposition home or self-care (01) | DRG 881 ==
LOC: ER 20:28 → NP 20:41
PROVIDERS: Admitting Provider Psychiatry & Neurology Psychiatry; Emergency Provider Emergency Medicine; PCP Family Medicine; Visit Provider Psychiatry & Neurology Psychiatry
DX: F32.9 Major depressive disorder, single episode, unspecified (principal); R45.851 Suicidal ideations; Z59.00 Homelessness unspecified; K21.9 Gastro-esophageal reflux disease without esophagitis; G40.909 Epilepsy, unspecified, not intractable, without status epilepticus; Z91.199 Patient's noncompliance with other medical treatment and regimen due to unspecified reason
CPT/HCPCS: 36415; 80306; 80307; 93005; 97150; 97165; 99285

== ENCOUNTER 2023-12-25 01:34 | Emergency (ER) | payer BC, MEDICAID, SELFPAY ==
[2022-12-19 07:08] VITALS: BP 117/76; BMI 28.2
[2023-12-25 01:40] VITALS: BP 111/75; PULSE 85; RESP 18; TEMP 36.9; O2SAT 98; BMI 26.6
--- NOTE | 2023-12-25 01:45 | XRR_ITS ---
PROCEDURE INFORMATION: Exam: XR Chest Exam date and time: 12/25/2023 1:47 AM Age: 43 years old Clinical indication: Patient HX: C/O dizziness; Additional info: Dizzy TECHNIQUE: Imaging protocol: Radiologic exam of the chest. Views: 1 view. COMPARISON: CR XR chest 1V portable [id number] 12/20/2023 2:57 PM FINDINGS: Lungs: Unremarkable. No consolidation. Pleural spaces: Unremarkable. No pleural effusion. No pneumothorax. Heart/Mediastinum: Unremarkable. No cardiomegaly. Bones/joints: Mild upper cervical levoscoliosis. XR/XR chest 1V portable [id number] IMPRESSION: No acute findings.
--- NOTE | 2023-12-25 01:46 | ECG_ITS ---
[facility] Test Date: 2023-12-25 Pat Name: Javi Bassett Department: Room: Gender: Male Clinic Business Manager: : 1980 Requested By: Kayla Viera Order Number: [id number] Maxi MD: Sayra Harrell M.D. Measurements Intervals [place] Rate: 84 P: 39 CT: 125 QRS: 66 QRSD: 96 T: 55 QT: 348 QTc: 413 Interpretive Statements SINUS RHYTHM Compared to ECG 12/20/2023 19:58:38 No significant changes Electronically Signed On 12-26-2023 21:46:51 CDT by Sayra Harrell M.D. [id number]
--- NOTE | 2023-12-25 01:53 | ED_ITS ---
HPI - Dizziness 2 General: Chief Complaint: Dizziness Stated Complaint: dizziness Time Seen by Provider: 12/25/23 01:41 Source: patient and EMS Mode of arrival: EMS Limitations: no limitations History of Present Illness: HPI Narrative: 43-year-old male states he is having maria antonia e dizziness lightheadedness that started 30 minutes ago. He states he is sleeping in a park on a bench and started to feel like he was maybe going to pass out with some slight dizziness. He denies any headache denies any chest pain. Patient is ambulatory here without any difficulty denies any ataxic gait. Associated symptoms: Denies chest pain, chills, headache(s), nausea or vomiting Review of Systems 2 Const: Denies: fever(s), chills, body aches or change in appetite ENMT: Denies: throat pain or dental pain Card: Denies: chest pain Resp: Denies: dyspnea GI: Denies: abdominal pain, nausea, vomiting or diarrhea Musc: Denies: neck pain or back pain Skin/Breast: Denies: rash Neuro: Reports: dizziness; Denies: headache(s) PFSH ED 2 PFSH: Medical History Family history of colorectal cancer Cancer screening Psychiatric care Migraine Surgical History History of knee surgery left knee Family History Sister Melanoma Other CAD (coronary artery disease) Cancer Hypertension Stroke Denies family history of Diabetes Social History Smoking and tobacco/nicotine status: current every day tobacco/nicotine user cigarettes Packs smoked per day: 0.5 Quit status (tobacco/nicotine): has tried quititng Number of times tried to quit tobacco: 4 Second hand smoke exposure: No Alcohol intake: former (Only drank once and that was on his birthday. ) Former alcohol use details: on his birth Substance/Drug Use: never Adopted: No Caregiver/support person: No Lives independently: Yes Household members: spouse and children Housing: House Marital status: Marital status details: March of 2022, been together 4 years Number of children: 0 Number of grandchildren: 0 Highest education level completed: 11th Grade service: No Current occupational status: other Details: working on disability Pets and animals: Yes Pets & animals: cat(s), dog(s) and farm animals Farm Animals: pigs Pets & animal details: [place] pig, chickens Leisure activites: other Leisure activities details: woodworking Sexually active: Yes () Do you think of yourself as: Straight/Heterosexual Current gender identity: Male Isabell/Sabianist: None Special isabell needs: No Agree to transfusion: Yes Physical Exam 2 Const: COMMON NORMALS: no acute distress, patient oriented x3 and healthy appearing HENMT: COMMON NORMALS: normocephalic and atraumatic HEAD & SCALP: n ormocephalic and atraumatic Eye: COMMON NORMALS: Equal, round and reactive pupils present and EOMs intact bilaterally PUPIL: Yes Equal, round and reactive pupils present OTHER: Patient has no nystagmus when looking forward no nystagmus when looking right or left Neck/C-Spine: COMMON NORMALS: full ROM and supple Chest: COMMONS NORMALS: normal inspection of the chest Resp: COMMON NORMALS: normal respiratory effort, No retractions, No use of accessory muscles and clear to auscultation bilaterally AUSCULTATION: clear to auscultation bilaterally Cardio: COMMON NORMALS: regular rate, regular rhythm and No murmurs present (Cardio) RATE: regular rate RHYTHM: regular rhythm GI: COMMON NORMALS: Normal to inspection, nondistended, normoactive bowel sounds present, Soft to palpation, non-tender and no masses PALPATION: Yes Soft to palpation Extremity: COMMON NORMALS: normal to inspection and full ROM Neuro: COMMON NORMALS: patient oriented x3, moves all extremities and no focal motor deficits SPEECH: speech normal GAIT: Yes Normal gait present M OTOR EXAM: 5/5 motor strength present throughout Psych: COMMON NORMALS: mental status grossly normal, Normal thought process present and cooperative THOUGHT PROCESS: Normal thought process present Skin: COMMON NORMALS: no rashes or lesions noted and no wounds GENERAL SKIN EXAM: no rashes or lesions noted Course 2 Vital Signs: Vital signs: Vital Signs Temperature 98.4 F 12/25/23 01:40 Pulse Rate 85 12/25/23 01:40 Respiratory Rate 18 12/25/23 01:40 Blood Pressure 111/75 12/25/23 01:40 Pulse Oximetry 98 12/25/23 01:40 Oxygen Delivery Me thod Room Air 12/25/23 01:40 MDM - Dizziness Medical Decision Making Patient presents here with lightheadedness dizziness he has no signs of vertigo here he was ambulatory without any difficulty no nystagmus he has no signs of a posterior stroke his blood work here is all normal he stable for discharge follow-up PCP return if worsening Medical Records I reviewed the patient's medical records. Lab Data I reviewed the patient's lab results. 12/25/23 02:03 12/25/23 02:03 Laboratory Results WBC 10.21 10^3/uL (3.29-11.43) 12/25/23 02:03 RBC 4.38 10^6/uL (3.85-5.65) 12/25/23 02:03 Hgb 13.10 g/dL (11.27-16.99) 12/25/23 02:03 Hct 40.1 % (37-53) 12/25/23 02:03 MCV 91.6 fl (82-101) 12/25/23 02:03 MCH 29.9 pg (27-33) 12/25/23 02:03 MCHC 32.7 g/dL (30-55) 12/25/23 02:03 RDW 12.5 % (12.1-15.1) 12/25/23 02:03 Plt Count 323 10^3/cmm (157-399) 12/25/23 02:03 MPV 8.7 fL (7.4-10.4) 12/25/23 02:03 Neut % (Auto) 56.8 % 12/25/23 02:03 Lymph % (Auto) 26.9 % 12/25/23 02:03 [place] % (Auto) 10.4 % 12/25/23 02:03 Eos % (Auto) 4.1 % 12/25/23 02:03 Baso % (Auto) 1.1 % 12/25/23 02:03 Neut # (Auto) 5.80 10^3/uL (1.8-7.7) 12/25/23 02:03 Lymph # (Auto) 2.8 10^3/uL (0.8-4.8) 12/25/23 02:03 [place] # (Auto) 1.1 10^3/uL (0.2-0.9) H 12/25/23 02:03 Eos # (Auto) 0.4 10^3/uL (0.0-0.8) 12/25/23 02:03 Baso # (Auto) 0.1 10^3/uL (0.0-0.1) 12/25/23 02:03 Nucleated RBC % (auto) 0 % 12/25/23 02:03 Nucleated RBCs # 0.0 /100WBC 12/25/23 02:03 Sodium 135 mmol/L (136-145) L 12/25/23 02:03 Potassium 3.8 mmol/L (3.5-5.1) 12/25/23 02:03 Chloride 100 mmol/L (98-107) 12/25/23 02:03 Carbon Dioxide 26 mmol/L (22-29) 12/25/23 02:03 Anion Gap 12.8 (5-19) 12/25/23 02:03 BUN 14 mg/dL (6-20) 12/25/23 02:03 Creatinine 1.2 mg/dL (0.7-1.2) 12/25/23 02:03 GFR Calculation 65.8 mL/min (90-130) L 12/25/23 02:03 Glucose 98 mg/dL (65-115) 12/25/23 02:03 Calculated Osmolality 280 mOsm/kg (285-295) L 12/25/23 02:03 Calcium 8.9 mg/dL (8.5-10.5) 12/25/23 02:03 Total Bilirubin 0.3 mg/dL (0.15-1.2) 12/25/23 02:03 AST 22 U/L (0-40) 12/25/23 02:03 ALT 27 U/L (0-41) 12/25/23 02:03 Alkaline Phosphatase 93 U/L (40-130) 12/25/23 02:03 Total Protein 6.8 g/dL (6.6-8.7) 12/25/23 02:03 Albumin 3.8 g/dL (3.5-5.2) 12/25/23 02:03 Globulin 3.0 g/dL (1.3-4.6) 12/25/23 02:03 Ethyl Alcohol < 10 mg/dL (0-10) 12/25/23 02:03 All radiology interpretation(s) finalized by discharge EKG Data EKG 1: I personally reviewed and interpreted this EKG as follows: EKG interpretation date: 12/25/23 EKG interpretation time: 01:51 Interpretation: nsr hr [address] or t wave abnormalities qrs 96 qtc 389 Discharge Plan Discharge Patient Disposition: Home Clinical Impression: Dizziness Condition: Stable Prescriptions: No Action pantoprazole [Protonix] 40 mg tablet,delayed release (DR/EC) 40 mg PO BID 90 Days Qty: 180 3RF ketoconazole 2 % shampoo 1 applic topical .weekly Qty: 120 5RF aripiprazole [Abilify] 5 mg tablet 5 mg PO DAILY Qty: 30 4RF citalopram [Celexa] 40 mg tablet 40 mg PO DAILY 30 Days Qty: 30 4RF omeprazole 40 mg capsule,delayed release(DR/EC) 40 mg PO DAILY 30 Days Qty: 30 12RF zonisamide 50 mg capsule 50 mg PO .at bedtime 90 Days Qty: 90 1RF Rx Instructions: pt also takes 200mg BID mupirocin 2 % ointment 1 applic topical BID Qty: 15 1RF Rx Instructions: Apply to affected area twice a day, as needed zonisamide 100 mg capsule See Rx Instructions .ROUTE .COMPLEX Qty: 225 0RF Dose Instruction: TAKE TWO CAPSULES BY MOUTH IN THE MORNING AND 50 MG IN THE EVENING Rx Instructions: TAKE TWO CAPSULES BY MOUTH IN THE MORNING AND 50 MG IN THE EVENING carbamazepine 200 mg tablet extended release 12 hr 300 mg PO BID Qty: 90 3RF benzonatate 100 mg capsule 100 mg PO TID PRN (Reason: cough) Qty: 30 0RF Discharge Orders: Discharge ED (Routine); Ordered 12/25/23 Ordered By: Kayla Viera Referrals: Lainey Gonzalez MD [Primary Care Provider] - 4-7 days Discharge Diet: Advance as tolerated Discharge Activity: Resume usual activity Patient Instructions: Dizziness (ED) Coding Level of Care Code ED Meter Installer And Remover for Chg Suhas
[2023-12-25] MEDS: sodium chloride 0.9% 1,000 ML 999 ML IV (02:04)
[2023-12-25] MEDS: meclizine 25 mg tablet 50 MG PO (02:05)
[2023-12-25 02:09] LABS: Basophils # 0.1 10^3/uL (0.0-0.1); Basophils % 1.1 %; Eosinophils # 0.4 10^3/uL (0.0-0.8); Eosinophils % 4.1 %; Hematocrit 40.1 % (37-53); Lymphocytes # 2.8 10^3/uL (0.8-4.8); Lymphocytes % 26.9 %; Mean Corpuscular HGB Conc 32.7 g/dL (30-55); Mean Corpuscular Hemoglobin 29.9 pg (27-33); Mean Corpuscular Volume 91.6 fl (82-101); Mean Platelet Volume 8.7 fL (7.4-10.4); Monocytes # 1.1 10^3/uL (0.2-0.9); Monocytes % 10.4 %; Neutrophils % 56.8 %; Nucleated Red Blood Cells % 0 %; Platelet Count 323 10^3/cmm (157-399); Red Blood Count 4.38 10^6/uL (3.85-5.65); Red Cell Distribution Width 12.5 % (12.1-15.1); White Blood Count 10.21 10^3/uL (3.29-11.43)
[2023-12-25 02:26] LABS: Alanine Aminotransferase 27 U/L (0-41); Albumin Level 3.8 g/dL (3.5-5.2); Alkaline Phosphatase 93 U/L (40-130); Anion Gap 12.8 (5-19); Aspartate Amino Transferase 22 U/L (0-40); Blood Urea Nitrogen 14 mg/dL (6-20); Calcium 8.9 mg/dL (8.5-10.5); Carbon Dioxide 26 mmol/L (22-29); Chloride 100 mmol/L (98-107); Creatinine Clr Calc Pharmacy 86.1636; Glomerular Filtration Rate 65.8 mL/min (90-130); Glucose 98 mg/dL (65-115); Osmolality Calculated 280 mOsm/kg (285-295); Potassium 3.8 mmol/L (3.5-5.1); Sodium 135 mmol/L (136-145); Total Bilirubin 0.3 mg/dL (0.15-1.2); Total Protein 6.8 g/dL (6.6-8.7)
[2023-12-25 02:30] LABS: Alcohol Level < 10 mg/dL (0-10)
[2023-12-25 03:43] VITALS: PULSE 80; RESP 18; O2SAT 92
== END 2023-12-25 03:10 | disposition home or self-care (01) ==
PROVIDERS: Emergency Provider Emergency Medicine; PCP Family Medicine
DX: R42 Dizziness and giddiness (principal); F17.210 Nicotine dependence, cigarettes, uncomplicated
CPT/HCPCS: 36415; 71045; 80053; 80307; 85025; 93005; 96360; 99285; J7030; J8597

== ENCOUNTER 2023-12-28 20:22 | Inpatient (IN) | payer BC, MEDICAID, SELFPAY ==
[2022-12-19 07:08] VITALS: BP 117/76; BMI 28.2
[2023-12-28 20:23] VITALS: BP 109/73; PULSE 76; RESP 18; TEMP 36.6; O2SAT 97; BMI 26.6
--- NOTE | 2023-12-28 20:29 | ED.C_ITS ---
HPI - Psych 2 General: Chief Complaint: Psychiatric Symptoms Stated Complaint: SI Time Seen by Provider: 12/28/23 20:29 Source: patient Mode of arrival: EMS Limitations: no limitations History of Present Illness: Patient is a 43-year-old male who presents to ED today with a complaint of depression and suicidal ideations. He states I do not feel like I need to be here anymore . 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 He states his situation has made him feel depressed and suicidal. He states he has a history of bipolar. He does follow-up with [facility] and is reportedly taking all of his medications. Looking at previous documentation, it looks like patient was recently released from [facility] on 12/21. Patient states he had a plan to stab himself with his knife before the police took it from him. He states he has previous suicide attempts of trying to jump off a bridge. Associated symptoms: Reports depression and suicidal ideation; Deny auditory hallucinations, visual hallucinations or homicidal ideation Review of Systems 2 Const: Denies: fever(s) or chills Card: Denies: chest pain, palpitations, lightheadedness or syncope Resp: Denies: dyspnea GI: Denies: abdominal pain, nausea, vomiting or diarrhea Skin/Breast: Denies: rash Neuro: Denies: headache(s) Psych: Reports: depression, hopelessness, loss of interest and suicidal ideation; Denies: anxiety, visual hallucinations, auditory hallucinations or homicidal ideation PFS ED 2 PFSH: Medical History Family history of colorectal cancer Cancer screening Psychiatric care Migraine Surgical History History of knee surgery left knee Family History Sister Melanoma Other CAD (coronary artery disease) Cancer Hypertension Stroke Denies family history of Diabetes Social History Smoking and tobacco/nicotine status: current every day tobacco/nicotine user cigarettes Packs smoked per day: 0.5 Quit status (tobacco/nicotine): has tried quititng Number of times tried to quit tobacco: 4 Second hand smoke exposure: No Alcohol intake: former (Only drank once and that was on his 20st birthday. ) Former alcohol use details: on his 20st birthday Substance/Drug Use: never Adopted: No Caregiver/support person: No Lives independently: Yes Household members: spouse and children Housing: House Marital status: Marital status details: March of 2022, been together 4 years Number of children: 0 Number of grandchildren: 0 Highest education level completed: 11th Grade service: No Current occupational status: other Details: working on disability Pets and animals: Yes Pets & animals: cat(s), dog(s) and farm animals Farm Animals: pigs Pets & animal details: [place] pig, chickens Leisure activites: other Leisure activities details: woodworking Sexually active: Yes () Do you think of yourself as: Straight/Heterosexual Current gender identity: Male Isabell/Druze: None Special isabell needs: No Agree to transfusion: Yes Physical Exam 2 Const: COMMON NORMALS: no acute distress, patient oriented x3, alert and well nourished GENERAL APPEARANCE: cooperative and well kempt Resp: COMMON NORMALS: normal respiratory effort and clear to auscultation bilaterally AUSCULTATION: clear to auscultation bilaterally Cardio: COMMON NORMALS: regular rate and regular rhythm RATE: regular rate RHYTHM: regular rhythm Neuro: COMMON NORMALS: patient oriented x3 SENSORIUM/ORIENTATION: Yes alert Psych: COMMON NORMALS: mental status grossly normal, Normal thought process present, cooperative, normal affect, speech normal, activity/motor behavior normal, denies hallucinations and denies homicidal ideation APPEARANCE: Yes grossly normal and Yes well kempt ATTITUDE: Yes calm ACTIVITY/MOTOR BEHAVIOR: Yes appropriate eye contact and No psychomotor agitation SPEECH: Y es normal speech MOOD & AFFECT: Yes euthymic mood THOUGHT PROCESS: Normal thought process present THOUGHT CONTENT: Yes Normal thought content present ATTENTION/CONCENTRATION: Yes attention grossly intact and Yes concentration grossly intact MEMORY/COGNITION: Yes memory grossly intact and Yes cognition grossly intact INSIGHT: Good insight present (Psych) JUDGEMENT: Good judgement present (Psych) Course 2 Consultations: Consultation #1: Dr. Aburto-accepts hospitalization Vital Signs: Vital signs: Vital Signs Temperature 98 F 12/28/23 20:23 Pulse Rate 76 12/28/23 20:23 Respiratory Rate 18 12/28/23 20:23 Blood Pressure 109/73 12/28/23 20:23 Pulse Oximetry 97 12/28/23 20:23 MDM - Psych Medical Decision Making Patient will be an admit to [facility] to Dr. Aburto for treatment/evaluation of his depression/suicidal ideations. He is voluntary at this time. Lab Data 12/28/23 20:48 12/28/23 20:48 Laboratory Results WBC 8.18 10^3/uL (3.29-11.43) 12/28/23 20:48 RBC 4.67 10^6/uL (3.85-5.65) 12/28/23 20:48 Hgb 13.80 g/dL (11.27-16.99) 12/28/23 20:48 Hct 41.8 % (37-53) 12/28/23 20:48 MCV 89.5 fl (82-101) 12/28/23 20:48 MCH 29.6 pg (27-33) 12/28/23 20:48 MCHC 33.0 g/dL (30-55) 12/28/23 20:48 RDW 12.7 % (12.1-15.1) 12/28/23 20:48 Plt Count 302 10^3/cmm (157-399) 12/28/23 20:48 MPV 8.8 fL (7.4-10.4) 12/28/23 20:48 Neut % (Auto) 56.5 % 12/28/23 20:48 Lymph % (Auto) 32.2 % 12/28/23 20:48 [place] % (Auto) 6.4 % 12/28/23 20:48 Eos % (Auto) 3.3 % 12/28/23 20:48 Baso % (Auto) 1.1 % 12/28/23 20:48 Neut # (Auto) 4.63 10^3/uL (1.8-7.7) 12/28/23 20:48 Lymph # (Auto) 2.6 10^3/uL (0.8-4.8) 12/28/23 20:48 [place] # (Auto) 0.5 10^3/uL (0.2-0.9) 12/28/23 20:48 Eos # (Auto) 0.3 10^3/uL (0.0-0.8) 12/28/23 20:48 Baso # (Auto) 0.1 10^3/uL (0.0-0.1) 12/28/23 20:48 Nucleated RBC % (auto) 0 % 12/28/23 20:48 Nucleated RBCs # 0.0 /100WBC 12/28/23 20:48 Sodium 136 mmol/L (136-145) 12/28/23 20:48 Potassium 3.7 mmol/L (3.5-5.1) 12/28/23 20:48 Chloride 102 mmol/L (98-107) 12/28/23 20:48 Carbon Dioxide 22 mmol/L (22-29) 12/28/23 20:48 Anion Gap 15.7 (5-19) 12/28/23 20:48 BUN 11 mg/dL (6-20) 12/28/23 20:48 Creatinine 1.1 mg/dL (0.7-1.2) 12/28/23 20:48 GFR Calculation 72.7 mL/min (90-130) L 12/28/23 20:48 Glucose 87 mg/dL (65-115) 12/28/23 20:48 Calculated Osmolality 281 mOsm/kg (285-295) L 12/28/23 20:48 Calcium 9.1 mg/dL (8.5-10.5) 12/28/23 20:48 Total Bilirubin 0.3 mg/dL (0.15-1.2) 12/28/23 20:48 AST 21 U/L (0-40) 12/28/23 20:48 ALT 26 U/L (0-41) 12/28/23 20:48 Alkaline Phosphatase 99 U/L (40-130) 12/28/23 20:48 Total Protein 6.9 g/dL (6.6-8.7) 12/28/23 20:48 Albumin 3.8 g/dL (3.5-5.2) 12/28/23 20:48 Globulin 3.1 g/dL (1.3-4.6) 12/28/23 20:48 Salicylates < 0.3 mg/dL (3-10) L 12/28/23 20:48 Urine Opiates Screen Negative ng/mL (Negative) 12/28/23 20:38 Acetaminophen < 5.0 ug/mL (10-30) L 12/28/23 20:48 Ur Barbiturates Screen Negative ng/mL (Negative) 12/28/23 20:38 Carbamazepine 4.8 ug/mL (4.0-12.0) 12/28/23 20:48 Ur Phencyclidine Scrn Negative ng/mL (Negative) 12/28/23 20:38 Ur Amphetamines Screen Negative ng/mL (Negative) 12/28/23 20:38 U Benzodiazepines Scrn Negative ng/mL (Negative) 12/28/23 20:38 Urine Cocaine Screen Negative ng/mL (Negative) 12/28/23 20:38 U Marijuana (THC) Screen Negative ng/mL (Negative) 12/28/23 20:38 Ethyl Alcohol < 10 mg/dL (0-10) 12/28/23 20:48 No radiology studies performed this visit Discharge Plan Discharge Patient Disposition: Admitted As Inpatient Clinical Impression: Depression, Suicidal ideation, Homelessness Condition: Stable Prescriptions: No Action pantoprazole [Protonix] 40 mg tablet,delayed release (DR/EC) 40 mg PO BID 90 Days Qty: 180 3RF ketoconazole 2 % shampoo 1 applic topical .weekly Qty: 120 5RF aripiprazole [Abilify] 5 mg tablet 5 mg PO DAILY Qty: 30 4RF citalopram [Celexa] 40 mg tablet 40 mg PO DAILY 30 Days Qty: 30 4RF omeprazole 40 mg capsule,delayed release(DR/EC) 40 mg PO DAILY 30 Days Qty: 30 12RF zonisamide 50 mg capsule 50 mg PO .at bedtime 90 Days Qty: 90 1RF Rx Instructions: pt also takes 200mg BID mupirocin 2 % ointment 1 applic topical BID Qty: 15 1RF Rx Instructions: Apply to affected area twice a day, as needed zonisamide 100 mg capsule See Rx Instructions .ROUTE .COMPLEX Qty: 225 0RF Dose Instruction: TAKE TWO CAPSULES BY MOUTH IN THE MORNING AND 50 MG IN THE EVENING Rx Instructions: TAKE TWO CAPSULES BY MOUTH IN THE MORNING AND 50 MG IN THE EVENING carbamazepine 200 mg tablet extended release 12 hr 300 mg PO BID Qty: 90 3RF benzonatate 100 mg capsule 100 mg PO TID PRN (Reason: cough) Qty: 30 0RF Referrals: Lainey Gonzalez MD [Primary Care Provider] - Patient Instructions: Opioid Safety, Pain Management Coding Level of Care Code ED Manager Medicare Marketing for Tari Dai
[2023-12-28 20:58] LABS: Amphetamines Screen Urine Negative (Negative); Barbiturates Screen Urine Negative (Negative); Benzodiazepines Screen Urine Negative (Negative); Cocaine Screen Urine Negative (Negative); Opiate Screen Urine Negative (Negative); PCP Screen Urine Negative (Negative); THC Screen Urine Negative (Negative)
[2023-12-28 21:04] LABS: Basophils # 0.1 10^3/uL (0.0-0.1); Basophils % 1.1 %; Eosinophils # 0.3 10^3/uL (0.0-0.8); Eosinophils % 3.3 %; Hematocrit 41.8 % (37-53); Lymphocytes # 2.6 10^3/uL (0.8-4.8); Lymphocytes % 32.2 %; Mean Corpuscular Hemoglobin 29.6 pg (27-33); Mean Corpuscular Volume 89.5 fl (82-101); Mean Platelet Volume 8.8 fL (7.4-10.4); Monocytes # 0.5 10^3/uL (0.2-0.9); Monocytes % 6.4 %; Neutrophils # 4.63 10^3/uL (1.8-7.7); Neutrophils % 56.5 %; Nucleated Red Blood Cells % 0 %; Platelet Count 302 10^3/cmm (157-399); Red Blood Count 4.67 10^6/uL (3.85-5.65); Red Cell Distribution Width 12.7 % (12.1-15.1); White Blood Count 8.18 10^3/uL (3.29-11.43)
[2023-12-28 21:27] LABS: Carbamazepine Tegretol 4.8 ug/mL (4.0-12.0)
[2023-12-28 21:28] LABS: Alanine Aminotransferase 26 U/L (0-41); Albumin Level 3.8 g/dL (3.5-5.2); Alkaline Phosphatase 99 U/L (40-130); Anion Gap 15.7 (5-19); Aspartate Amino Transferase 21 U/L (0-40); Blood Urea Nitrogen 11 mg/dL (6-20); Calcium 9.1 mg/dL (8.5-10.5); Carbon Dioxide 22 mmol/L (22-29); Chloride 102 mmol/L (98-107); Creatinine Clr Calc Pharmacy 93.9966; Globulin 3.1 g/dL (1.3-4.6); Glomerular Filtration Rate 72.7 mL/min (90-130); Glucose 87 mg/dL (65-115); Osmolality Calculated 281 mOsm/kg (285-295); Potassium 3.7 mmol/L (3.5-5.1); Sodium 136 mmol/L (136-145); Total Bilirubin 0.3 mg/dL (0.15-1.2); Total Protein 6.9 g/dL (6.6-8.7)
[2023-12-28 21:30] LABS: Acetaminophen < 5.0 ug/mL (10-30); Alcohol Level < 10 mg/dL (0-10); Salicylate < 0.3 mg/dL (3-10)
[2023-12-28 22:06] VITALS: BP 111/75; PULSE 71; RESP 18; TEMP 36.4; O2SAT 98
[2023-12-28 22:23] VITALS: BP 110/75; PULSE 71; RESP 16; TEMP 36.6; O2SAT 98
[2023-12-28] MEDS: trazodone 50 mg Tablet PO (22:38)
[2023-12-28] MEDS: ibuprofen 600 mg Tablet PO (22:38)
--- NOTE | 2023-12-28 22:38 | PC.NURSE ---
Patient requested medication for anxiety given Trazadone 50 mg
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
[2023-12-29 06:00] VITALS: BP 120/77; PULSE 83; RESP 17; TEMP 36.7; O2SAT 98
[2023-12-29] MEDS: ARIPiprazole 10 mg Tablet 5 MG PO (08:28)
[2023-12-29] MEDS: citalopram 20 mg Tablet 40 MG PO (08:28)
[2023-12-29] MEDS: zonisamide 100 MG Capsule 200 MG PO (08:29)
[2023-12-29] MEDS: doxycycline 100 mg Tablet PO ×2 (08:29→17:26)
[2023-12-29] MEDS: carBAMazepine XR (12 HR) 200 mg Tablet 300 MG PO ×2 (08:29→17:26)
[2023-12-29] MEDS: pantoprazole DR 40 mg Tablet PO (08:29)
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
[2023-12-29 13:44] VITALS: BP 112/76; PULSE 103; RESP 16; TEMP 36.9; O2SAT 94
[2023-12-29] MEDS: nicotine 2 mg Gum BUCCAL (16:00)
[2023-12-29 19:38] VITALS: BP 110/73; PULSE 77; RESP 18; TEMP 36.7; O2SAT 98
[2023-12-30 06:00] VITALS: BP 119/76; PULSE 89; RESP 18; TEMP 36.7; O2SAT 100
[2023-12-30] MEDS: nicotine 2 mg Gum BUCCAL (09:56)
[2023-12-30] MEDS: citalopram 20 mg Tablet 40 MG PO (09:57)
[2023-12-30] MEDS: pantoprazole DR 40 mg Tablet PO (09:57)
[2023-12-30] MEDS: ARIPiprazole 10 mg Tablet PO (09:57)
[2023-12-30] MEDS: doxycycline 100 mg Tablet PO ×2 (09:57→17:54)
[2023-12-30] MEDS: carBAMazepine XR (12 HR) 200 mg Tablet 300 MG PO ×2 (09:57→17:54)
[2023-12-30] MEDS: zonisamide 100 MG Capsule 200 MG PO (09:57)
[2023-12-30] MEDS: lamoTRIgine 25 mg Tablet 50 MG PO (09:57)
[2023-12-30] MEDS: benzonatate 100 mg Capsule PO (09:58)
--- NOTE | 2023-12-30 12:04 | P.NPUPN_ITS ---
Subjective NPU 2 Subjective: 43-year-old male with a history of gener alized anxiety disorder and depression admitted with suicidal ideation. The patient had reported additional stress of being homeless. Patient reported no changes yet in mood with the increase in Abilify from 5 mg to 10 mg. He had reported some sleep continuity disruption. He had expressed interest in considering more frequent psychotherapy to target his depression. He had reported no recent seizures. Patient's Tegretol level was 4.8 which was therapeutic in conjunction with his zonisamide. Patient had endorsed some feelings of hopelessness. He had reported having chronic problems with concentration and reported continued low energy and low motivation. He had endorsed some complaints of hypomania in the past although he had reported that his manic symptoms had been more steady over the past few months. Mental Status Exam 2 MSE Comments: This is an overweight versus obese white male in hospital scrubs with adequate grooming and eye contact.? No abnormal movements except for mild psychomotor retardation.?He was cooperative with exam in mild distress.? Speech was normal in rate and slightly decreased in volume.? Mood described as depressed. His affect was restricted in range and mood congruent. Thought process was linear. Thought content: Patient endorsed suicidal thoughts with thoughts of self injury and denied homicidal ideation. There were no delusions reported or noted, he denied hallucinations or visual hallucinations. Attention and concentration were adequate and memory was mostly reliable but none were formally tested.? He is alert and oriented x 3.? Insight was poor and judgment is impaired and judgment is limited. Impulse control is limited. Vitals/I&O/Wt Last Vital Signs Temp 98.1 F 12/30/23 06:00 Pulse 89 12/30/23 06:00 Resp 18 12/30/23 06:00 BP 119/76 12/30/23 06:00 Pulse Ox 100 12/30/23 06:00 O2 Del Method Room Air 12/29/23 13:44 Weight last 48 hrs Weight 84.368 kg Data NPU 12/28/23 20:48 12/28/23 20:48 A&P Assessment and plan (1) Depression: (2) Suicidal ideation: (3) GERD (gastroesophageal reflux disease): Qualifiers: Esophagitis presence: without esophagitis Qualified Code(s): K21.9 - Gastro-esophageal reflux disease without esophagitis (4) Migraine: Qualifiers: Migraine type: unspecified Status migrainosus presence: without status migrainosus Intractability: not intractable Qualified Code(s): G43.909 - Migraine, unspecified, not intractable, without status migrainosus (5) Generalized epilepsy: (6) Seizure disorder: Plan Patient is a 43-year-old male with a history of mental health issues mostly depression and anxiety and no significant addiction issues readmitted after 1 week with worsening depression and suicidal ideation currently homeless with few psychosocial supports. 1. Continue lamotrigine 50mg at night for depression, Continue Abilifyi 10mg daily and Celexa at 40mg daily. 2. Encourage individual, group and milieu therapy. 3. Continue q-15 minute checks for safety.? 4.? Will attempt to gather collateral information. Involuntary Hold Information 2 96 Hour Hold: 96 Hour Involuntary Admission: No Attestations NPU 2 Medical Necessity Statement*: Inpatient hospitalization is medically necessary and the clinically appropriate intervention?at this time.? We will monitor/initiate medications and make changes as indicated.? The patient's likely length of stay is 3-5 days. Coding Level of Care Code Acute Code for [facility] Fwd Diagnoses Depression F32.A Suicidal ideation R45.851 Gastroesophageal reflux disease without esophagitis K21.9 Esophagitis presence: without esophagitis Migraine without status migrainosus, not intractable, unspecified migraine type G43.909 Migraine type: unspecified Status migrainosus presence: without status migrainosus Intractability: not intractable Generalized epilepsy G40.309 Seizure disorder G40.909
[2023-12-30 14:00] VITALS: BP 102/71; PULSE 92; RESP 17; TEMP 36.7; O2SAT 96
[2023-12-30 21:06] VITALS: BP 108/76; PULSE 76; RESP 17; TEMP 36.4; O2SAT 98
[2023-12-31 06:00] VITALS: BP 112/75; PULSE 85; RESP 18; TEMP 37.1; O2SAT 99
[2023-12-31] MEDS: carBAMazepine XR (12 HR) 200 mg Tablet 300 MG PO ×2 (08:28→17:44)
[2023-12-31] MEDS: doxycycline 100 mg Tablet PO ×2 (08:28→17:44)
[2023-12-31] MEDS: citalopram 20 mg Tablet 40 MG PO (08:28)
[2023-12-31] MEDS: lamoTRIgine 25 mg Tablet 50 MG PO (08:28)
[2023-12-31] MEDS: pantoprazole DR 40 mg Tablet PO (08:28)
[2023-12-31] MEDS: ARIPiprazole 10 mg Tablet PO (08:28)
[2023-12-31] MEDS: zonisamide 100 MG Capsule 200 MG PO (08:28)
--- NOTE | 2023-12-31 13:39 | P.NPUPN_ITS ---
Subjective NPU 2 Subjective: 43-year-old male with a history of gener alized anxiety disorder and major depression admitted with suicidal ideation. The patient had reported no suicidal thoughts today. He had reported some improvement in sleep. He had reported no side effects from Abilify. He had reported no recent seizures. He was compliant on the milieu. He had denied any manic symptoms. He had reported some anxiety and expressed some frustration with his struggles with homelessness as well. He had reported having chronic problems with low energy and low motivation. Mental Status Exam 2 MSE Comments: This is an overweight versus obese white male in hospital scrubs with adequate grooming and eye contact.? No abnormal movements except for mild psychomotor retardation.?He was cooperative with exam in mild distress.? Speech was normal in rate and slightly decreased in volume.? Mood described as depressed. His affect was less restricted. Thought process was linear. Thought content: Patient endorsed suicidal thoughts with thoughts of self injury and denied homicidal ideation. There were no delusions reported or noted, he denied hallucinations or visual hallucinations. Attention and concentration were adequate and memory was mostly reliable but none were formally tested.? He is alert and oriented x 3.? Insight was improving and judgment is poor. Impulse control is limited. Vitals/I&O/Wt Last Vital Signs Temp 98.8 F 12/31/23 06:00 Pulse 85 12/31/23 06:00 Resp 18 12/31/23 06:00 BP 112/75 12/31/23 06:00 Pulse Ox 99 12/31/23 06:00 O2 Del Method Room Air 12/30/23 21:06 Weight last 48 hrs Weight 85.956 kg Data NPU 12/28/23 20:48 12/28/23 20:48 A&P Assessment and plan (1) Depression: (2) Suicidal ideation: (3) GERD (gastroesophageal reflux disease): Qualifiers: Esophagitis presence: without esophagitis Qualified Code(s): K21.9 - Gastro-esophageal reflux disease without esophagitis (4) Migraine: Qualifiers: Migraine type: unspecified Status migrainosus presence: without status migrainosus Intractability: not intractable Qualified Code(s): G43.909 - Migraine, unspecified, not intractable, without status migrainosus (5) Generalized epilepsy: (6) Seizure disorder: Plan Patient is a 43-year-old male with a history of mental health issues mostly depression and anxiety and no significant addiction issues readmitted after 1 week with worsening depression and suicidal ideation currently homeless with few psychosocial supports. 1. Continue lamotrigine 50mg at night for depression, Continue Abilify 10mg daily and Celexa at 40mg daily. Continue Carbamazepine 300mg bid. 2. Encourage individual, group and milieu therapy. 3. Continue q-15 minute checks for safety.? 4.? Will attempt to gather collateral information. Involuntary Hold Information 2 96 Hour Hold: 96 Hour Involuntary Admission: No Attestations NPU 2 Medical Necessity Statement*: Inpatient hospitalization is medically necessary and the clinically appropriate intervention?at this time.? We will monitor/initiate medications and make changes as indicated.? The patient's likely length of stay is 2-4 days. Coding Level of Care Code Acute Code for [facility] Fwd Diagnoses Depression F32.A Suicidal ideation R45.851 Gastroesophageal reflux disease without esophagitis K21.9 Esophagitis presence: without esophagitis Migraine without status migrainosus, not intractable, unspecified migraine type G43.909 Migraine type: unspecified Status migrainosus presence: without status migrainosus Intractability: not intractable Generalized epilepsy G40.309 Seizure disorder G40.909
[2023-12-31 14:00] VITALS: BP 111/76; PULSE 92; RESP 16; TEMP 36.7; O2SAT 97
[2023-12-31 20:50] VITALS: BP 114/75; PULSE 89; RESP 17; TEMP 37; O2SAT 97
[2023-12-31 23:53] VITALS: BP 114/75; PULSE 89; RESP 17; TEMP 37; O2SAT 99
[2024-01-01 06:00] VITALS: BP 108/76; PULSE 86; RESP 18; TEMP 36.7; O2SAT 99
[2024-01-01] MEDS: carBAMazepine XR (12 HR) 200 mg Tablet 300 MG PO ×2 (08:17→17:30)
[2024-01-01] MEDS: doxycycline 100 mg Tablet PO ×2 (08:17→17:30)
[2024-01-01] MEDS: zonisamide 100 MG Capsule 200 MG PO (08:17)
[2024-01-01] MEDS: citalopram 20 mg Tablet 40 MG PO (08:19)
[2024-01-01] MEDS: ARIPiprazole 10 mg Tablet PO (08:19)
[2024-01-01] MEDS: pantoprazole DR 40 mg Tablet PO (08:19)
[2024-01-01] MEDS: lamoTRIgine 25 mg Tablet 50 MG PO (08:19)
--- NOTE | 2024-01-01 09:44 | PC.NURSE ---
per Dr. Aburto verbal order called in to [facility] outpatient pharmacy zonisamide 50mg po q hs quantity 30 capsule for administration at our facility.
[2024-01-01 14:00] VITALS: BP 115/76; PULSE 74; RESP 16; TEMP 36.6; O2SAT 99
--- NOTE | 2024-01-01 14:50 | P.NPUPN_ITS ---
Subjective NPU 2 Subjective: 43-year-old male with a history of gener alized anxiety disorder and major depression admitted with suicidal ideation. The patient had reported continued depression but reported having less suicidal thoughts. He had reported that he continued to worry about his homelessness. He reported improved sleep. He reported having less anger and there was no episodes of aggression noted. He reported that his racing thoughts were less intense. He endorsed occasional feelings of hopelessness. He had expressed desire to resume psychotherapy and medication management. Mental Status Exam 2 MSE Comments: This is an overweight versus obese white male in hospital scrubs with adequate grooming and eye contact.? No abnormal movements except for mild psychomotor retardation.?He was cooperative with exam in mild distress.? Speech was normal in rate and slightly decreased in volume.? Mood described as a little better. His affect remained flat. Thought process was linear. Thought content: Patient endorsed passive suicidal thoughts with no thoughts of self injury and denied homicidal ideation. There were no delusions reported or noted, he denied hallucinations or visual hallucinations. Attention and concentration were adequate and memory was mostly reliable but none were formally tested.? He is alert and oriented x 3.? Insight was improving and judgment is poor. Impulse control is limited. Vitals/I&O/Wt Last Vital Signs Temp 98.0 F 01/01/24 06:00 Pulse 86 01/01/24 06:00 Resp 18 01/01/24 06:00 BP 108/76 01/01/24 06:00 Pulse Ox 99 01/01/24 06:00 O2 Del Method Room Air 12/30/23 21:06 Weight last 48 hrs Weight 85.956 kg Data NPU 12/28/23 20:48 12/28/23 20:48 A&P Assessment and plan (1) Depression: (2) Suicidal ideation: (3) GERD (gastroesophageal reflux disease): Qualifiers: Esophagitis presence: without esophagitis Qualified Code(s): K21.9 - Gastro-esophageal reflux disease without esophagitis (4) Migraine: Qualifiers: Migraine type: unspecified Status migrainosus presence: without status migrainosus Intractability: not intractable Qualified Code(s): G43.909 - Migraine, unspecified, not intractable, without status migrainosus (5) Generalized epilepsy: (6) Seizure disorder: Plan Patient is a 43-year-old male with a history of mental health issues mostly depression and anxiety and no significant addiction issues readmitted after 1 week with worsening depression and suicidal ideation currently homeless with few psychosocial supports. 1. Continue lamotrigine 50mg at night for depression, Increase abilify to 15mg daily and Celexa at 40mg daily. Continue Carbamazepine 300mg bid. 2. Encourage individual, group and milieu therapy. 3. Continue q-15 minute checks for safety.? 4.? Will attempt to gather collateral information. Involuntary Hold Information 2 96 Hour Hold: 96 Hour Involuntary Admission: No Attestations NPU 2 Medical Necessity Statement*: Inpatient hospitalization is medically necessary and the clinically appropriate intervention?at this time.? We will monitor/initiate medications and make changes as indicated.? The patient's likely length of stay is 2-4 days. Coding Level of Care Code Acute Code for g Fwd Diagnoses Depression F32.A Suicidal ideation R45.851 Gastroesophageal reflux disease without esophagitis K21.9 Esophagitis presence: without esophagitis Migraine without status migrainosus, not intractable, unspecified migraine type G43.909 Migraine type: unspecified Status migrainosus presence: without status migrainosus Intractability: not intractable Generalized epilepsy G40.309 Seizure disorder G40.909
[2024-01-01] MEDS: trazodone 50 mg Tablet PO (20:18)
[2024-01-01 21:58] VITALS: BP 106/71; PULSE 82; RESP 16; TEMP 36.6; O2SAT 98
[2024-01-02 06:00] VITALS: BP 116/81; PULSE 92; RESP 18; TEMP 36.5; O2SAT 98
[2024-01-02] MEDS: doxycycline 100 mg Tablet PO (09:52)
[2024-01-02] MEDS: lamoTRIgine 25 mg Tablet 50 MG PO (09:52)
[2024-01-02] MEDS: pantoprazole DR 40 mg Tablet PO (09:52)
[2024-01-02] MEDS: carBAMazepine XR (12 HR) 200 mg Tablet 300 MG PO (09:52)
[2024-01-02] MEDS: ARIPiprazole 10 mg Tablet 15 MG PO (09:53)
[2024-01-02] MEDS: zonisamide 100 MG Capsule 200 MG PO (09:53)
[2024-01-02] MEDS: citalopram 20 mg Tablet 40 MG PO (09:53)
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
[2024-01-02 13:17] VITALS: BP 116/81; PULSE 92; RESP 18; TEMP 36.5; O2SAT 98
[2024-01-02 14:00] VITALS: BP 114/74; PULSE 85; RESP 16; TEMP 37.2; O2SAT 100
== END 2024-01-02 18:00 | disposition home or self-care (01) | DRG 881 ==
LOC: ER 21:40 → NP 21:44
PROVIDERS: Admitting Provider Psychiatry & Neurology Psychiatry; Emergency Provider Physician Assistant; PCP Family Medicine; Visit Provider Psychiatry & Neurology Psychiatry
DX: F32.A Depression, unspecified (principal); R45.851 Suicidal ideations; Z59.00 Homelessness unspecified; F41.1 Generalized anxiety disorder; Z91.51 Personal history of suicidal behavior; K21.9 Gastro-esophageal reflux disease without esophagitis; G40.909 Epilepsy, unspecified, not intractable, without status epilepticus; F17.210 Nicotine dependence, cigarettes, uncomplicated
CPT/HCPCS: 36415; 80053; 80156; 80306; 80307; 85025; 97150; 97165; 99285